=== PATIENT | female | born 1940 | race Caucasian/White ===

== ENCOUNTER 2016-08-27 00:56 | Emergency (ER) | payer OTHER ==
[~2016-08-27] VITALS: Ht 152.4 cm; Wt 43.0 kg
[~2016-08-27 00:56] MED LIST: ACETAMINOPHEN; ATV5 PO; CHOL100010 PO; CLOP1TAB54 PO; HYDR1TAB2 PO; SIMV20TA2 PO
[2016-08-27 01:03] VITALS: TEMP 36.5; Ht 152.4 cm; Wt 43.0 kg
[2016-08-27] MEDS ORDERED: GELATIN SPONGE 12-7MM EXT STA (01:06)
--- NOTE | 2016-08-27 01:47 | EMERGENCY ROOM VISIT NOTE ---
ED Visit Note First contact with patient: 00:59 CHIEF COMPLAINT: Bleeding from right ankle HISTORY OF PRESENT ILLNESS: This 76-year-old female patient presents to the emergency department ambulatory complaining of bleeding to the right ankle. The patient states that she woke up from sleep and struck her right ankle on a coffee table. She states that she cut the ankle over a varicose pain and it was bleeding significantly. The bleeding has stopped after a pressure dressing was applied by EMS. There is no weakness or numbness of the area. Tetanus shot is up-to-date. Full range of motion of the ankle. The patient denies any pain. REVIEW OF SYSTEMS: A 6 system review of systems was completed with positives and pertinent negatives listed in the HPI. ALLERGIES: Atorvastatin, shellfish, simvastatin MEDICATIONS: See med list PMH: No significant past medical history. SOCIAL HISTORY: The patient lives locally by herself. PHYSICAL EXAM: Vital Signs: Reviewed Nurse's notes, vital signs stable. GENERAL : This is a 76-year-old female, in no acute distress, well-developed, well- nourished. SKIN: There is a 2 mm abrasion to the medial right ankle. There is no active bleeding at this time. Extension and flexion of the right ankle is full and strong. Sensation to pain and light touch is intact. EMERGENCY DEPARTMENT COURSE: I examined the patient. Verbal consent was obtained to perform the procedure. The ankle was cleaned with saline and betadine. Gelfoam was applied to the avulsion laceration and the area was dressed with a pressure dressing. The bleeding stopped. The patient tolerated the procedure well. The patient was discharged home in stable condition. The patient was independently evaluated by Dr. Rosas, ED attending physician, who agreed with my assessment and treatment plan. DIAGNOSIS: Right ankle laceration Current/Historical Medications Scheduled Cholecalciferol (Vitamin D), 1,000 INTER.UNIT PO DAILY Clopidogrel Bisulfate (Plavix), 75 MG PO DAILY Hydrocodone/Acetaminophen 5MG/500MG (Lortab 5MG/500MG), 1 TABLET PO BIDM Lorazepam (Ativan *), 1 MG PO BID PRN Simvastatin (Zocor), 20 MG PO QPM [Apap 80MG/0.8ML], PRN Allergies Coded Allergies: Atorvastatin (Verified Allergy, Unknown, ?, 07/21/15) Shellfish (Verified Adverse Reaction, Unknown, 10/22/11) Simvastatin (Verified Adverse Reaction, Unknown, 10/22/11) Vital Signs Date Time Temp Pulse Resp B/P Pulse Ox O2 Delivery O2 Flow Rate FiO2 08/27/16 02:13 86 16 129/79 95 08/27/16 01:03 36.5 80 18 121/69 94 Room Air Departure Information Impression Primary Impression: Laceration of ankle Dispostion Home / Self-Care Condition GOOD Referrals Chad Nick M.D. (PCP) Patient Instructions [facility] Additional Instructions Leave the GELFOAM and dressing in place for the next 48 hours. Keep the dressing clean and dry until time for removal. To remove the GELFOAM dressing, remove the overlying tape and then soak the wound in warm water until the piece of GELFOAM can be easily removed. Proper wound care is essential for adequate wound healing and infection prevention. You can shower and clean the wound with soap and water. Do not scour over the wound, pat dry with a towel. You can use an antibiotic ointment with a dressing/bandage over the wound for the next 3-4 days. After this time you may leave the wound dry and open to the air. Look for signs of infection of the wound including: increased pain, swelling, foul discharge, streaking, or increased temperature. If any of these are noticed you should return to the Emergency Department for further assessment and treatment. As with any laceration you may have received nerve damage to the surrounding tissues. This damage could be permanent. For pain control, you can use the following [id number] medicines (if >12 yo): - Regular strength (325mg/tab) Tylenol (acetaminophen) 2 tabs every 4-6 hours as needed. Do not exceed 12 tablets in a 24 hour period. Avoid taking more than 4 grams (4000 mg) of Tylenol per day. This includes any other sources of acetaminophen you may take on a regular basis. - Regular strength (200 mg/tab) Advil (ibuprofen) 1-2 tabs every 4-6 hours as needed. Do not exceed a dose of 3200 mg per day. Return to the emergency department if your symptoms worsen despite treatment course outlined above. Problem Qualifiers Primary Impression: Laceration of ankle Encounter type: initial encounter Laterality: right Qualified Codes: S91.011A - Laceration without foreign body, right ankle, initial encounter
--- NOTE | 2016-08-27 01:49 | EMERGENCY ROOM VISIT NOTE ---
ED Visit Note First contact with patient: 00:59 I saw this patient in conjunction with Angelina Dumont PA-C. I agree with her decision-making and treatment plan.
[2016-08-27 02:13] VITALS: BP 129/79; PULSE 86; O2SAT 95
== END 2016-08-27 02:14 | disposition home or self-care (01) ==
LOC: EDBD 00:56 → C.EDA 00:57
DX: S91.011A Laceration without foreign body, right ankle, initial encounter (principal); W22.8XXA Striking against or struck by other objects, initial encounter; Y92.019 Unspecified place in single-family (private) house as the place of occurrence of the external cause; Z79.02 Long term (current) use of antithrombotics/antiplatelets; Z79.899 Other long term (current) drug therapy

== ENCOUNTER → 2017-04-14 | Outpatient (CLI) | payer OTHER | END | disposition home or self-care (01) | LOC: C.MAMM 13:21 | PROVIDERS: ATTEND Internal Medicine Geriatric Medicine | DX: M81.0 Age-related osteoporosis without current pathological fracture (principal) ==

== ENCOUNTER → 2017-08-16 | Outpatient (CLI) | payer OTHER ==
[2017-08-16 16:59] LABS: BASO % 0.2 %; BASO ABS # 0.01 K/uL (0-0.2); EOS % 2.9 %; EOS ABS # 0.16 K/uL (0-0.5); HEMATOCRIT 42.2 % (37-47); HEMOGLOBIN 13.9 g/dL (12.0-16.0); IG# 0.01 K/uL (0.00-0.02); LYMPH % 14.8 %; LYMPH ABS # 0.81 K/uL (1.2-3.4); MEAN CELL VOLUME 88.3 fL (80-100); MEAN CORPUSCULAR HEMOGLOBIN 29.1 pg (25-34); MEAN CORPUSCULAR HGB CONC 32.9 g/dl (32-36); MONO % 9.1 %; NEUT % 72.8 %; NEUT ABS # 3.98 K/uL (1.4-6.5); PLATELET COUNT 229 K/uL (130-400); RED CELL DISTRIBUTION WIDTH CV 14.3 % (11.5-14.5); RED CELL DISTRIBUTION WIDTH SD 46.7 fL (36.4-46.3); WHITE BLOOD COUNT 5.47 K/uL (4.8-10.8)
[2017-08-16 17:14] LABS: ALBUMIN 4.2 gm/dl (3.4-5.0); ALT/SGPT 36 U/L (12-78); AST/SGOT 31 U/L (15-37); BLOOD UREA NITROGEN 15 mg/dl (7-18); CARBON DIOXIDE 28 mmol/L (21-32); CHOLESTEROL 204 mg/dl (0-200); CREATININE 0.75 mg/dl (0.60-1.20); GLUCOSE 80 mg/dl (70-99); POTASSIUM 4.4 mmol/L (3.5-5.1); SODIUM 139 mmol/L (136-145)
[2017-08-16 17:24] LABS: ALKALINE PHOSPHATASE 121 U/L (45-117); LDL CHOLESTEROL CALCULATED 105 mg/dl; TOTAL PROTEIN 7.5 gm/dl (6.4-8.2)
== END | disposition home or self-care (01) ==
LOC: C.LABBC 14:37
PROVIDERS: ATTEND Internal Medicine Geriatric Medicine
DX: M81.0 Age-related osteoporosis without current pathological fracture (principal); M19.90 Unspecified osteoarthritis, unspecified site; E04.2 Nontoxic multinodular goiter; D86.9 Sarcoidosis, unspecified; E78.5 Hyperlipidemia, unspecified; E55.9 Vitamin D deficiency, unspecified; G30.9 Alzheimer's disease, unspecified; F41.8 Other specified anxiety disorders

== ENCOUNTER → 2017-09-30 | Outpatient (CLI) | payer OTHER ==
[2017-09-30 17:05] LABS: CALCIUM 9.1 mg/dl (8.5-10.1); POTASSIUM 4.3 mmol/L (3.5-5.1)
--- NOTE | 2017-11-14 06:16 | CODING QUERY NO DIAGNOSIS ---
: 1940 TREATMENT RENDERED WITHOUT A DIAGNOSIS To promote full compliance with coding requirements relating to patient care, physician participation is requested in all cases of medical record coder uncertainty. Please assist us with providing a diagnosis/symptom for the test(s) below: A diagnosis/symptom was not documented on your Order. A valid diagnosis/symptom is required to bill all insurances. Please remember that we are unable to code a diagnosis of rule out, probable, possible, questionable, or suspected. Tests that require a diagnosis: DOS: 09/30/16 POTASSIUM DIAGNOSIS: CALCIUM DIAGNOSIS: MAGNESIUM DIAGNOSIS: Provider Signature: Date: Thank you Teresa Rodriguez [employer] Once completed, please kindly fax back to [phone] For questions please call [phone]
== END | disposition home or self-care (01) ==
LOC: C.LABBC 15:06
PROVIDERS: ATTEND Family Medicine Adult Medicine
DX: R25.2 Cramp and spasm (principal)

== ENCOUNTER 2018-08-15 17:13 | Inpatient (IN) ==
[2018-08-15] MEDS ORDERED: SODIUM CHLORIDE 0.9% 1000ML 1,000 ML IV ONE (18:36)
--- NOTE | 2018-08-15 19:07 | XRay Report ---
XR chest 1V portable CLINICAL HISTORY: Acute change in mental status SARCOIDOSIS COMPARISON STUDY: 05/22/2018 FINDINGS: The cardiac and mediastinal contours remain stable. There is mild hilar fullness. There are diffuse bilateral reticulonodular opacities similar to the preceding study. A trace right pleural ef fusion is suspected. There is no acute parenchymal consolidation[ IMPRESSION: 1. Essentially stable chronic bilateral reticulonodular opacities with associated hilar prominence. T he findings although not specific are consistent with the previously provided clinical history of gil coidosis 2. Small right pleural effusion Electronically signed by: Cr Mccabe M.D. 08/15/2018 7:06 PM
[2018-08-15 19:18] LABS: Basophils # (auto) 0.01 K/uL (0-0.2); Basophils % (auto) 0.1 %; Eosinophils # (auto) 0.07 K/uL (0-0.5); Eosinophils % (auto) 0.8 %; Hematocrit (blood only) 36.2 % (37-47); Hemoglobin 11.9 g/dL (12.0-16.0); Immature Granulocytes # (auto) 0.02 K/uL (0.00-0.02); Immature Granulocytes % (auto) 0.2 %; Lymphocytes # (auto) 0.78 K/uL (1.2-3.4); Lymphocytes % (auto) 9.4 %; Mean Corpuscular Hgb Conc 32.9 g/dL (32-36); Mean Corpuscular Volume 85.2 fL (80-100); Mean Platelet Volume 11.8 fL (7.4-10.4); Monocytes # (auto) 0.88 K/uL (0.11-0.59); Monocytes % (auto) 10.6 %; Neutrophils # (auto) 6.55 K/uL (1.4-6.5); Neutrophils % (auto) 78.9 %; Platelet Count 188 K/uL (130-400); RDW Coefficient of Variation 16.6 % (11.5-14.5); RDW Standard Deviation 51.5 fL (36.4-46.3); Red Blood Count 4.25 M/uL (4.2-5.4); White Blood Count 8.31 K/uL (4.8-10.8)
[2018-08-15 19:31] LABS: INR 1.2 (0.9-1.1); Prothrombin Time 11.9 Seconds (9.0-12.0)
--- NOTE | 2018-08-15 19:40 | CT Scan Report ---
CT head/brain wo con CLINICAL HISTORY: Acute change in mental status COMPARISON STUDY: 10/22/2011 TECHNIQUE: Axial CT of the brain is performed from the vertex to the skull base. IV contrast was not administered for this examination. A dose lowering technique was utilized adhering to the principles of ALARA. CT DOSE: 537.48 mGy.cm FINDINGS: No intra or extra-axial mass lesions are visualized. There is no CT evidence of acute cortical infarc tion. There is no evidence of midline shift. There is no acute hemorrhage. No calvarial fractures ar e visualized. There are extensive white matter hypodensities likely on a small vessel basis. There is no evidence of pathologic ventricular dilatation. There is no evidence of acute sinusitis IMPRESSION: No acute intracranial findings Electronically signed by: Cr Mccabe M.D. 08/15/2018 7:38 PM
[2018-08-15 19:44] LABS: Alanine Aminotransferase 15 U/L (12-78); Albumin Globulin Ratio 1.1 (0.9-2); Albumin Level 3.2 gm/dl (3.4-5.0); Alkaline Phosphatase 79 U/L (45-117); Aspartate Aminotransferase 42 U/L (15-37); BUN Creatinine Ratio 16.1 (10-20); Bilirubin,Total 0.7 mg/dl (0.2-1); Blood Urea Nitrogen 19 mg/dl (7-18); Calcium 13.6 mg/dl (8.5-10.1); Carbon Dioxide 27 mmol/L (21-32); Chloride 107 mmol/L (98-107); Creatine Kinase 87 U/L (26-192); Est GFR (African American) 51.9; Est GFR (Non-African American) 44.7; Globulin 2.9 gm/dl (2.5-4.0); Glucose 70 mg/dl (70-99); Magnesium 1.6 mg/dl (1.8-2.4); Potassium 3.4 mmol/L (3.5-5.1); Sodium 140 mmol/L (136-145); Total Protein 6.1 gm/dl (6.4-8.2)
[2018-08-15 19:49] LABS: Partial Thromboplastin Ratio 1.1; Partial Thromboplastin Time 29.6 Seconds (21.0-31.0)
[2018-08-15 20:04] LABS: Bilirubin Direct 0.2 mg/dl (0-0.2)
--- NOTE | 2018-08-15 21:38 | History & Physical Report ---
Date of Service August 15, 2018 Assessment & Plan (1) Hypercalcemia: 78yoF with hx of sarcoidosis, dementia, HLD, PFO, TIA, multinodular goiter-nontoxic, osteoporosis, Vit D deficiency, muscle cramps at night, gait disturbance and depression/anxiety presented to the ED for concern of hypercal cemia on labs completed today by Dr. Solano. Hypercalcemia likely in the setting of sarcoidosis: concern for increasing confusion -Ca 13.8 corrected (moderate elevation) -CT head no acute abl -Ammonia 22 -PTH ordered to rule out hyperparathyroidism -Received 1L NS bolus in the ED -Started on NS at 200cc/hr -EF 60% -Continue to monitor BMP Hx of Sarcoidosis with concern for infection -Bronchoscopy on 08/02 with one culture positive for enterobacter cloacae -prescribed ciprofloxacin 500mg BID x 14 days - day 1 -Started on Prednisone 10mg daily taper course (4 pills x 2 days then decrease by half a pill every 2 days until finishes course of 36 pills) - day 1 Possible UTI -UA dirty with 1+ LE, 30 WBC, trace blood -UCx pending -Pt denies any symptoms but demented -Pt is on cipro for pulmonary infection which should provide adequate coverage Hypomagnesemia -Mag 1.6 -Mag Sulfate 2g ordered Hypokalemia -K 3.4 -KCL 20meq ordered Dementia -Continue memantine Hx of TIA -Continue clopidogrel Hx of osteoporosis -Continue weekly alendronate Depression/anxiety -Continue escitalopram Code: DNR/DNI DVT prop: Lovenox SQ 30mg Dispo: med/surg telemetry (2) Hypomagnesemia: (3) Sarcoidosis: (4) Dementia: (5) PFO (patent foramen ovale): (6) Depression with anxiety: (7) TIA (transient ischemic attack): (8) HLD (hyperlipidemia): (9) Multinodular goiter (nontoxic): (10) Osteoporosis: (11) Vitamin D deficiency: (12) Hypokalemia: History of Present Illness Chief Complaint: Hypercalcemia Primary Care Provider: Aicha Coppola MD 78yoF with hx of sarcoidosis, dementia, HLD, PFO, TIA, multinodular goiter- nontoxic, osteoporosis, Vit D deficiency, muscle cramps at night, gait disturbance and depression/anxiety presented to the ED for concern of hypercalcemia on labs completed today by Dr. Solano. Per family (neices and son), pt's health has been declining for the past few weeks. She has had trouble walking and is more confused and forgetful. Patient lives in [facility]. Today she had appt with PCP and Dr. Solano who did some labs and started her on abx (cipro) and prednisone for recent bronchoscopy culture on 08/02 being positive. He then called them to go to the ED for concern of hypercalcemia. Pt is demented and not a reliable historian but reports being comfortable and denies any MAGANA/dizziness, fever, cp, sob, abdominal pain, n/v, dysuria. She is n oted to be coughing. PSHx: appendectomy, tonsillectomy and adenoidectomy, and total abdominal hysterectomy Allergies Allergy/AdvReac Type Severity Reaction Status Date / Time atorvastatin Allergy Unknown Unknown Verified 08/15/18 21:07 donepezil [From Aricept] Allergy Unknown Unknown Verified 08/15/18 21:07 naproxen [From Aleve] Allergy Unknown Unknown Verified 08/15/18 21:07 rivastigmine [From Exelon] Allergy Unknown Unknown Verified 08/15/18 21:07 shellfish derived AdvReac Unknown Unknown Verified 08/15/18 21:10 simvastatin AdvReac Unknown Unknown Verified 08/15/18 21:10 Home Medications Home Medications Medication Instructions Recorded Confirmed Type clopidogrel [Plavix] 75 mg PO Q2D 07/27/18 08/15/18 History alendronate 70 mg PO WK 08/15/18 08/15/18 History escitalopram oxalate 10 mg PO DAILY 08/15/18 08/15/18 History memantine 28 mg PO DAILY 08/15/18 08/15/18 History prednisone See Rx Instructions .ROUTE .COMPLEX 08/15/18 08/15/18 History Past Med/Surg History Medical History Anxiety (Acute) High cholesterol (Acute) Pulmonary nodule (Acute) Surgical History History of appendectomy (Acute) History of tonsillectomy and adenoidectomy (Acute) History of total abdominal hysterectomy (Acute) Social History Preferred Language: Danish Communication Ability: Effective State Federal Relations Deputy Director Required: No Beliefs That Will Affect Care: Oriental Orthodox Oriental Orthodox Beliefs: Congregational Current Living Situation: Alone Current Living Situation Comment: at [facility] living apt Feels Safe at Home: Yes and No Is there a partner from a previous relationship who is making you feel unsafe now?: No Any Concerns about Your Family Situation: Yes (family is concerned, pt not taking meds or eating properly) Would You Like to Speak to Someone About Your Situation: Yes (referred to case management) Safety Concerns: Feels Safe At This Time Smoking Status: Never smoker Do You Dip or Chew Tobacco: No Second Hand Exposure: No Hx Alcohol Use: No Hx Substance Use: No Review of Systems Review of Systems: As per HPI Physical Exam Physical Exam: General: In NAD HEENT: palpable nodular goiter, moist mucous membranes Neuro: alert, demented CV: RRR, no m/r/g PULM: Occasional crackles appreciated, equal breath sounds bilaterally ABDOMEN: +BS, non-distended, NTTP in all quadrants LE: no calf TTP, no LE edema Results & Data Vital Signs (Past 12 Hours) Vital Signs Temp Pulse Resp BP Pulse Ox 08/15/18 21:01 52 L 19 146/73 H 95 08/15/18 21:00 52 L 19 95 08/15/18 20:31 55 L 18 146/69 H 93 08/15/18 20:30 52 L 21 93 08/15/18 20:00 54 L 18 140/75 98 08/15/18 19:38 58 L 17 130/79 95 08/15/18 17:21 36.4 C L 58 L 16 121/78 96 Laboratory Results Abnormal lab results 08/15/18 08/15/18 08/15/18 Range/Units 18:56 18:56 18:56 Hgb 11.9 L (12.0-16.0) g/dL Hct 36.2 L (37-47) % RDW Std Deviation 51.5 H (36.4-46.3) fL RDW Coeff of Zainab 16.6 H (11.5-14.5) % MPV 11.8 H (7.4-10.4) fL Neut # (Auto) 6.55 H (1.4-6.5) K/uL Lymph # (Auto) 0.78 L (1.2-3.4) K/uL [place] # (Auto) 0.88 H (0.11-0.59) K/uL INR 1.2 H (0.9-1.1) Potassium 3.4 L (3.5-5.1) mmol/L BUN 19 H (7-18) mg/dl Calcium 13.6 H* (8.5-10.1) mg/dl Magnesium 1.6 L (1.8-2.4) mg/dl AST 42 H (15-37) U/L Total Protein 6.1 L (6.4-8.2) gm/dl Albumin 3.2 L (3.4-5.0) gm/dl Lipase 61 L (73-393) U/L Diagnostic Findings CT head/brain wo con CLINICAL HISTORY: Acute change in mental status COMPARISON STUDY: 10/22/2011 TECHNIQUE: Axial CT of the brain is performed from the vertex to the skull base. IV contrast was not administered for this examination. A dose lowering technique was utilized adhering to the principles of ALARA. CT DOSE: 537.48 mGy.cm FINDINGS: No intra or extra-axial mass lesions are visualized. There is no CT evidence of acute cortical infarction. There is no evidence of midline shift. There is no acute hemorrhage. No calvarial fractures are visualized. There are extensive white matter hypodensities likely on a small vessel basis. There is no evidence of pathologic ventricular dilatation. There is no evidence of acute sinusitis IMPRESSION: No acute intracranial findings XR chest 1V portable CLINICAL HISTORY: Acute change in mental status SARCOIDOSIS COMPARISON STUDY: 05/22/2018 FINDINGS: The cardiac and mediastinal contours remain stable. There is mild hilar fullness. There are diffuse bilateral reticulonodular opacities similar to the preceding study. A trace right pleural effusion is suspected. There is no acute parenchymal consolidation[ IMPRESSION: 1. Essentially stable chronic bilateral reticulonodular opacities with associated hilar prominence. The findings although not specific are consistent with the previously provided clinical history of sarcoidosis 2. Small right pleural effusion Code Status & VTE Plan Code Status DNR/DNI VTE Prophylaxis Plan VTE Prophylaxis will be ordered: Yes Supervising Physician Co-Signing Physician Notes Pt seen/examined in conjunction with resident MD Teresa Hills. Orders and plan of admission formulated with resident. 78 y/o F Hx sarcoidosis, dementia, HLD, TIA, depression/anxiety. The pt was directed to the ER afetr her MD ordered labs and noted that her calcium level was exceedingly high. She had not had specific complaints, however, family had noted some functional decline, increasing confusion and an unsteady gait over the past few weeks. OE AAO x 1 S1,2 R CTAB NT, ND No CCE P: As the pt does not exhibit symptoms consistent with hypercalcemia, we will provide IVF only for the time being. Will consider bisphosphonates if her Ca trends upwards. She is taking prednisone for sarcoid and otherwise does ot have any meds which require DC We will initiate a hypercalcemia w/u. Her sarcoidosis is in the differential. As a separate issue, it is felt that she may not be safe in her current living situation and may require placement prior to DC. Resident Activity Tracking Resident Involvement: Resident Care Provided Care Provided: [facility]
[2018-08-15] MEDS ORDERED: POLYETHYLENE (MIRALAX) 17 GM PACK PO PRN (22:34)
[2018-08-15] MEDS ORDERED: ALUMINUM/MAGNESIUM SUSP 30 ML UDC PO PRN (22:34)
[2018-08-15] MEDS ORDERED: POTASSIUM CHLORIDE 10 MEQ TABCR PO STA (22:34)
--- NOTE | 2018-08-16 00:11 | Emergency Department Note ---
Entered by Beba Reed acting as a scribe for History of Present Illness General Chief complaint: Abnormal Labs/Diagnostic Testing Stated complaint: CRITICAL CALCIUM LEVEL; DOC REFFERED Time Seen by Provider: 08/15/18 18:04 Source: patient History of Present Illness Onset (ago): hour(s) (today) Pain Consistency: + other (episode) Quality: + other (abnormal labs) Associated symptoms: + confusion, + weakness and + other (positive unstable on feet; negative abdominal pain); no chest pain, no fever/chills, no nausea/vomiting and no shortness of breath Treatments prior to arrival: none The patient is a 78 year old female who presents to the Emergency Room with complaints of an episode of abnormal labs today. The patient son states that the patient saw her PCP today and had outpatient labs collected by Dr. Solano's office. Per the patient's son, Dr. Abbott told the patient to come in because of her high calcium levels. Per the patient's son, the patient has been increasingly unstable on her feet, weak, and confused. The patient denies abdominal pain, nausea, vomiting, shortness of breath, and chest pain. The patient's family denies recent fevers or falls. The patient's family denies treatments prior to arrival. History is limited due to patient's underlying Alzheimer's disease. Home Medications Home Medications Medication Instructions Recorded Confirmed Type clopidogrel [Plavix] 75 mg PO Q2D 07/27/18 08/15/18 History alendronate 70 mg PO WK 08/15/18 08/15/18 History escitalopram oxalate 10 mg PO DAILY 08/15/18 08/15/18 History memantine 28 mg PO DAILY 08/15/18 08/15/18 History prednisone See Rx Instructions .ROUTE .COMPLEX 08/15/18 08/15/18 History Allergies Allergy/AdvReac Type Severity Reaction Status Date / Time atorvastatin Allergy Unknown Unknown Verified 08/15/18 21:07 donepezil [From Aricept] Allergy Unknown Unknown Verified 08/15/18 21:07 naproxen [From Aleve] Allergy Unknown Unknown Verified 08/15/18 21:07 rivastigmine [From Exelon] Allergy Unknown Unknown Verified 08/15/18 21:07 shellfish derived AdvReac Unknown Unknown Verified 08/15/18 21:10 simvastatin AdvReac Unknown Unknown Verified 08/15/18 21:10 Past Med/Surg History Medical History Anxiety (Acute) High cholesterol (Acute) Pulmonary nodule (Acute) Surgical History History of appendectomy (Acute) History of tonsillectomy and adenoidectomy (Acute) History of total abdominal hysterectomy (Acute) Social History Preferred Language: Moldovan Communication Ability: Effective Mesh Man Required: No Beliefs That Will Affect Care: Synagogue Synagogue Beliefs: Islam Current Living Situation: Alone Current Living Situation Comment: at [facility] living apt Feels Safe at Home: Yes and No Is there a partner from a previous relationship who is making you feel unsafe now?: No Any Concerns about Your Family Situation: Yes (family is concerned, pt not taking meds or eating properly) Would You Like to Speak to Someone About Your Situation: Yes (referred to case management) Safety Concerns: Feels Safe At This Time Smoking Status: Never smoker Do You Dip or Chew Tobacco: No Second Hand Exposure: No Hx Alcohol Use: No Hx Substance Use: No Review of Systems Unobtainable due to mental health condition Physical Exam Vital Signs Vital Signs - 24 hr 08/15/18 17:21 08/15/18 19:38 08/15/18 20:00 Temperature 36.4 C L Temperature Source Oral Sepsis Recent Fever Within 48 Hours No Sepsis Action Taken by Nursing No Action Required Pulse Rate 58 L 58 L 54 L Pulse Rate from SpO2 Sensor 58 L 53 L Respiratory Rate 16 17 18 Respiratory Effort / Characteristics Non-Labored Spontaneous Respiratory Depth Blood Pressure 121/78 130/79 140/75 Blood Pressure [Left Arm] Blood Pressure Mean 92 96 96 Blood Pressure Mean [Left Arm] Blood Pressure Position Sitting Blood Pressure Position [Left Arm] Pulse Oximetry 96 95 98 Pulse Oximetry [Left Index Finger] Oxygen Delivery Method Room Air Oxygen Delivery Method [Left Index Finger] 08/15/18 20:30 08/15/18 20:31 08/15/18 21:00 Temperature Temperature Source Sepsis Recent Fever Within 48 Hours Sepsis Action Taken by Nursing Pulse Rate 52 L 55 L 52 L Pulse Rate from SpO2 Sensor 53 L 53 L 55 L Respiratory Rate 21 18 19 Respiratory Effort / Characteristics Respiratory Depth Blood Pressure 146/69 H Blood Pressure [Left Arm] Blood Pressure Mean 94 Blood Pressure Mean [Left Arm] Blood Pressure Position Blood Pressure Position [Left Arm] Pulse Oximetry 93 93 95 Pulse Oximetry [Left Index Finger] Oxygen Delivery Method Oxygen Delivery Method [Left Index Finger] 08/15/18 21:01 08/15/18 21:02 08/15/18 21:16 Temperature Temperature Source Sepsis Recent Fever Within 48 Hours Sepsis Action Taken by Nursing Pulse Rate 52 L 53 L Pulse Rate from SpO2 Sensor 50 L 52 L Respiratory Rate 19 19 Respiratory Effort / Characteristics Respiratory Depth Blood Pressure 146/73 H Blood Pressure [Left Arm] Blood Pressure Mean 97 Blood Pressure Mean [Left Arm] Blood Pressure Position Blood Pressure Position [Left Arm] Pulse Oximetry 95 95 Pulse Oximetry [Left Index Finger] Oxygen Delivery Method Room Air Oxygen Delivery Method [Left Index Finger] 08/15/18 21:30 08/15/18 21:31 08/15/18 22:00 Temperature Temperature Source Sepsis Recent Fever Within 48 Hours Sepsis Action Taken by Nursing Pulse Rate 56 L 57 L 56 L Pulse Rate from SpO2 Sensor 54 L 55 L 57 L Respiratory Rate 21 19 18 Respiratory Effort / Characteristics Respiratory Depth Blood Pressure 139/84 Blood Pressure [Left Arm] Blood Pressure Mean 102 Blood Pressure Mean [Left Arm] Blood Pressure Position Blood Pressure Position [Left Arm] Pulse Oximetry 93 93 91 Pulse Oximetry [Left Index Finger] Oxygen Delivery Method Oxygen Delivery Method [Left Index Finger] 08/15/18 22:34 08/15/18 23:34 Temperature 36.9 C 36.9 C Temperature Source Oral Oral Sepsis Recent Fever Within 48 Hours Sepsis Action Taken by Nursing Pulse Rate Pulse Rate from SpO2 Sensor Respiratory Rate 18 18 Respiratory Effort / Characteristics Non-Labored Spontaneous Respiratory Depth Normal Blood Pressure Blood Pressure [Left Arm] 118/68 116/66 Blood Pressure Mean Blood Pressure Mean [Left Arm] 84 82 Blood Pressure Position Blood Pressure Position [Left Arm] Lying Pulse Oximetry 93 91 Pulse Oximetry [Left Index Finger] 93 Oxygen Delivery Method Room Air Room Air Oxygen Delivery Method [Left Index Finger] Room Air HENT: Exam performed. -Head: Normocephalic and atraumatic. -Right Ear: External ear normal. No mastoid tenderness. -Left Ear: External ear normal. No mastoid tenderness. -Mouth/Throat: The oropharynx is clear and moist. No trismus in the jaw. No dental abscesses or uvula swelling. No oropharyngeal exudate or tonsillar abscesses. EYES: Conjunctivae and EOM are normal. Pupils are equal, round, and reactive to light. Right eye exhibits no discharge. Left eye exhibits no discharge. No scleral icterus. NECK: Normal range of motion. Neck supple. No JVD present. No spinous process tenderness present. No carotid bruit present. No rigidity. No tracheal deviation and normal range of motion present. No Brudzinski's sign and no Kernig's sign noted. CV: Normal rate, regular rhythm, normal heart sounds and intact distal pulses. There is no peripheral edema. Palpable radial pulses bue. PULM/CHEST: Effort normal and breath sounds normal. No respiratory distress. No stridor. She has no wheezes. She has no rales. Chest Wall: She exhibits no tenderness. ABD: The abdomen is soft. Bowel sounds are normal. She has no distension. No mass is present. There is no tenderness. There is no rebound, no guarding, no Ya's sign and no tenderness at McBurney's point. Rovsig negative MUSC/SKEL: Normal range of motion. There is no peripheral edema, tenderness or deformity. LYMPH: No cervical adenopathy. NEURO: Motor and sensation grossly intact. SKIN: Skin is warm and dry. She is not diaphoretic. PSYCH: Pleasantly demented. Course 183: The patient was evaluated in room A12A and a complete history and physical examination were performed. The patient's calcium was 14.2 today 08/15/2018. This is up from 11.2 10 days ago. The patient's creatinine was 1.38, and her baseline appears to be 1. The patient's urine today was a contaminated sample. 2003: Vital signs stable. The patient's labs today show a serum calcium of 13.6 and a magnesium of 1.6. The patient will be admitted to Dr. Murray-[facility] Hospitalist service for further evaluation and then placement in a facility. Dr. Murray has been notified. Administered Medications Discontinued Medications Sodium Chloride (Nss 1000ml) 1,000 mls @ 999 mls/hr IV .Q1H1M ONE Stop: 08/15/18 19:36 Last Infusion: 08/15/18 20:49 Dose: 0 mls/hr Documented by: [id number] Admin: 08/15/18 19:45 Dose: 999 mls/hr Documented by: [id number] Medical Decision Making Medical Records Attestation: I reviewed the patient's medical records. Home Medications Current Medication List: was personally reviewed by me Laboratory Data Attestation: I reviewed the patient's lab results. Result diagrams: 08/15/18 18:56 08/15/18 18:56 Lab Results 08/15/18 08/15/18 08/15/18 Range/Units 18:56 18:56 18:56 WBC 8.31 (4.8-10.8) K/uL RBC 4.25 (4.2-5.4) M/uL Hgb 11.9 L (12.0-16.0) g/dL Hct 36.2 L (37-47) % MCV 85.2 (80-100) fL MCH 28.0 (25-34) pg MCHC 32.9 (32-36) g/dL RDW Std Deviation 51.5 H (36.4-46.3) fL RDW Coeff of Zainab 16.6 H (11.5-14.5) % Plt Count 188 (130-400) K/uL MPV 11.8 H (7.4-10.4) fL Immature Gran % (Auto) 0.2 % Neut % (Auto) 78.9 % Lymph % (Auto) 9.4 % Gregg % (Auto) 10.6 % Eos % (Auto) 0.8 % Baso % (Auto) 0.1 % Immature Gran # (Auto) 0.02 (0.00-0.02) K/uL Neut # (Auto) 6.55 H (1.4-6.5) K/uL Lymph # (Auto) 0.78 L (1.2-3.4) K/uL Gregg # (Auto) 0.88 H (0.11-0.59) K/uL Eos # (Auto) 0.07 (0-0.5) K/uL Baso # (Auto) 0.01 (0-0.2) K/uL PT 11.9 (9.0-12.0) Seconds INR 1.2 H (0.9-1.1) APTT 29.6 (21.0-31.0) Seconds PTT Ratio 1.1 Sodium 140 (136-145) mmol/L Potassium 3.4 L (3.5-5.1) mmol/L Chloride 107 (98-107) mmol/L Carbon Dioxide 27 (21-32) mmol/L Anion Gap 6.0 (3-11) BUN 19 H (7-18) mg/dl Creatinine 1.16 (0.6-1.2) mg/dl Est Cr Clr Drug Dosing Not Reportable Est GFR ( Amer) 51.9 Est GFR (Non-Af Amer) 44.7 BUN/Creatinine Ratio 16.1 (10-20) Glucose 70 (70-99) mg/dl Lactate (0.4-2.0) mmol/L Calcium 13.6 H* (8.5-10.1) mg/dl Magnesium 1.6 L (1.8-2.4) mg/dl Total Bilirubin 0.7 (0.2-1) mg/dl Direct Bilirubin 0.2 (0-0.2) mg/dl AST 42 H (15-37) U/L ALT 15 (12-78) U/L Alkaline Phosphatase 79 (45-117) U/L Ammonia (11-32) umol/L Total Creatine Kinase 87 (26-192) U/L Troponin I 0.020 (0-0.045) ng/ml Total Protein 6.1 L (6.4-8.2) gm/dl Albumin 3.2 L (3.4-5.0) gm/dl Globulin 2.9 (2.5-4.0) gm/dl Albumin/Globulin Ratio 1.1 (0.9-2) Lipase 61 L (73-393) U/L PTH Intact (18.4-80.1) pg/ml 08/15/18 08/15/18 08/15/18 Range/Units 19:24 19:24 23:03 WBC (4.8-10.8) K/uL RBC (4.2-5.4) M/uL Hgb (12.0-16.0) g/dL Hct (37-47) % MCV (80-100) fL MCH (25-34) pg MCHC (32-36) g/dL RDW Std Deviation (36.4-46.3) fL RDW Coeff of Zainab (11.5-14.5) % Plt Count (130-400) K/uL MPV (7.4-10.4) fL Immature Gran % (Auto) % Neut % (Auto) % Lymph % (Auto) % Gregg % (Auto) % Eos % (Auto) % Baso % (Auto) % Immature Gran # (Auto) (0.00-0.02) K/uL Neut # (Auto) (1.4-6.5) K/uL Lymph # (Auto) (1.2-3.4) K/uL Gregg # (Auto) (0.11-0.59) K/uL Eos # (Auto) (0-0.5) K/uL Baso # (Auto) (0-0.2) K/uL PT (9.0-12.0) Seconds INR (0.9-1.1) APTT (21.0-31.0) Seconds PTT Ratio Sodium (136-145) mmol/L Potassium (3.5-5.1) mmol/L Chloride (98-107) mmol/L Carbon Dioxide (21-32) mmol/L Anion Gap (3-11) BUN (7-18) mg/dl Creatinine (0.6-1.2) mg/dl Est Cr Clr Drug Dosing Est GFR ( Amer) Est GFR (Non-Af Amer) BUN/Creatinine Ratio (10-20) Glucose (70-99) mg/dl Lactate 1.8 (0.4-2.0) mmol/L Calcium (8.5-10.1) mg/dl Magnesium (1.8-2.4) mg/dl Total Bilirubin (0.2-1) mg/dl Direct Bilirubin (0-0.2) mg/dl AST (15-37) U/L ALT (12-78) U/L Alkaline Phosphatase (45-117) U/L Ammonia 22.0 (11-32) umol/L Total Creatine Kinase (26-192) U/L Troponin I (0-0.045) ng/ml Total Protein (6.4-8.2) gm/dl Albumin (3.4-5.0) gm/dl Globulin (2.5-4.0) gm/dl Albumin/Globulin Ratio (0.9-2) Lipase (73-393) U/L PTH Intact < 6.3 L (18.4-80.1) pg/ml Imaging Data Radiologist's Impression: Radiology results as stated below per my review and the radiologist's interpretation: XR chest 1V portable CLINICAL HISTORY: Acute change in mental status SARCOIDOSIS COMPARISON STUDY: 05/22/2018 FINDINGS: The cardiac and mediastinal contours remain stable. There is mild hilar fullness. There are diffuse bilateral reticulonodular opacities similar to the preceding study. A trace right pleural effusion is suspected. There is no acute parenchymal consolidation[ IMPRESSION: 1. Essentially stable chronic bilateral reticulonodular opacities with ass ociated hilar prominence. The findings although not specific are consistent with the previously provided clinical history of sarcoidosis 2. Small right pleural effusion Electronically signed by: Cr Mccabe M.D. 08/15/2018 7:[address] head/brain wo con CLINICAL HISTORY: Acute change in mental status COMPARISON STUDY: 10/22/2011 TECHNIQUE: Axial CT of the brain is performed from the vertex to the skull base. IV contrast was not administered for this examination. A dose lowering technique was utilized adhering to the principles of ALARA. CT DOSE: 537.48 mGy.cm FINDINGS: No intra or extra-axial mass lesions are visualized. There is no CT evidence of acute cortical infarction. There is no evidence of midline shift. There is no acute hemorrhage. No calvarial fractures are visualized. There are extensive white matter hypodensities likely on a small vessel basis. There is no evidence of pathologic ventricular dilatation. There is no evidence of acute sinusitis IMPRESSION: No acute intracranial findings Electronically signed by: Cr Mccabe M.D. 08/15/2018 7:38 PM ECG Data Attestation: I personally reviewed and interpreted this ECG as follows: Indication: weakness Rate (beats per minute): 59 Rhythm: sinus rhythm Findings: + other (UT, QRS, and QTC intervals within normal limits) and + T-wave inversion (lead II, III, aVF, V3, V4) Blood Pressure Blood Pressure Findings: Elevated blood pressure Blood Pressure Disposition: further management by hospitalist [facility] Narrative Vital signs stable. The patient's labs today show a serum calcium of 13.6 and a magnesium of 1.6. The patient will be admitted to Dr. Murray-[facility] Hospitalist service for further evaluation and then placement in a facility. Dr. Murray has been notified. Impression & Plan Hypercalcemia, Hypomagnesemia Discharge Plan Visit Data *Final* Discharge Date/Time: 08/15/18 22:04 Chief Complaint: Abnormal Labs/Diagnostic Testing Stated Complaint: CRITICAL CALCIUM LEVEL; DOC REFFERED ED Provider: Juan Marr Discharge Problem: Hypercalcemia, Hypomagnesemia Patient Disposition: Admitted As Inpatient Discharge Instructions Interventions: ED Discharge Assessment Last Done: 08/15/18 22:04 The scribe's documentation has been prepared under my direction and personally reviewed by me in its entirety. I confirm that the note above accurately reflects all work, treatment, procedures, and medical decision making performed by me.
[2018-08-16] MEDS: SODIUM CHLORIDE 0.9% 1000ML 1,000 ML IV SCH ×5 (00:23→20:26)
[2018-08-16] MEDS: MAGNESIUM SULFATE / D5W 1 GM/100 ML BAG IV SCH ×2 (00:24→02:21)
[2018-08-16] MEDS: CIPROFLOXACIN 500 MG TAB PO SCH ×2 (00:36→09:21)
[2018-08-16] MEDS: ENOXAPARIN INJ 30 MG/0.3 ML SYR SQ SCH ×2 (00:37→20:26)
[2018-08-16] MEDS ORDERED: Nursing to Pharmacy Communication ONE (01:09)
[2018-08-16 06:35] LABS: Appearance Urine Cloudy (Clear); Bacteria Urine Automated Negative (Negative); Bilirubin Urine Negative (Negative); Blood Urine Negative (Negative); Color Urine Yellow; Epithelial Cell Urine Auto 20-30 /lpf (0-5); Glucose Urine UA Negative (Negative); Ketones Urine Trace (Negative); Leukocyte Esterase Urine Negative (Negative); Nitrite Urine Negative (Negative); Protein Urine Negative (Negative); Specific Gravity Urine 1.018 (1.000-1.030); Urobilinogen Urine Negative (Negative)
[2018-08-16 07:16] LABS: Basophils # (auto) 0.01 K/uL (0-0.2); Basophils % (auto) 0.1 %; Eosinophils # (auto) 0.09 K/uL (0-0.5); Eosinophils % (auto) 1.2 %; Hematocrit (blood only) 33.2 % (37-47); Immature Granulocytes # (auto) 0.02 K/uL (0.00-0.02); Immature Granulocytes % (auto) 0.3 %; Lymphocytes # (auto) 0.72 K/uL (1.2-3.4); Lymphocytes % (auto) 9.6 %; Mean Corpuscular Hgb Conc 33.1 g/dL (32-36); Mean Corpuscular Volume 87.6 fL (80-100); Mean Platelet Volume 11.5 fL (7.4-10.4); Monocytes # (auto) 0.67 K/uL (0.11-0.59); Monocytes % (auto) 8.9 %; Neutrophils # (auto) 5.98 K/uL (1.4-6.5); Neutrophils % (auto) 79.9 %; Platelet Count 159 K/uL (130-400); RDW Coefficient of Variation 16.7 % (11.5-14.5); RDW Standard Deviation 52.9 fL (36.4-46.3); Red Blood Count 3.79 M/uL (4.2-5.4); White Blood Count 7.49 K/uL (4.8-10.8)
[2018-08-16 07:55] LABS: Albumin Globulin Ratio 1.2 (0.9-2); Albumin Level 2.8 gm/dl (3.4-5.0); BUN Creatinine Ratio 15.4 (10-20); Bilirubin,Total 0.6 mg/dl (0.2-1); Calcium 12.7 mg/dl (8.5-10.1); Creatinine Clr Calc Pharmacy 24.9 ml/min; Est GFR (African American) 53.5; Est GFR (Non-African American) 46.2; Globulin 2.3 gm/dl (2.5-4.0); Potassium 3.1 mmol/L (3.5-5.1); Total Protein 5.1 gm/dl (6.4-8.2)
[2018-08-16] MEDS ORDERED: GLUCOSE 10 TABS/TUBE PO PRN (08:35)
[2018-08-16] MEDS ORDERED: GLUCOSE 40% GEL 15 GM TUBE PO PRN (08:35)
[2018-08-16] MEDS ORDERED: CARBOHYDRATES FOR HYPOGLYCEMIA PO PRN (08:35)
[2018-08-16] MEDS ORDERED: DEXTROSE 50% 50 ML SYRINGE IV PRN (08:35)
[2018-08-16] MEDS ORDERED: GLUCAGON FOR INJ 1 MG VIAL SQ PRN (08:35)
[2018-08-16] MEDS ORDERED: POTASSIUM CHLORIDE 20 MEQ TABCR PO ONE (08:45)
[2018-08-16] MEDS ORDERED: predniSONE 20 MG TAB PO SCH (09:00)
[2018-08-16] MEDS: CLOPIDOGREL BISULFATE 75 MG TAB PO SCH (09:20)
[2018-08-16] MEDS: predniSONE 10 MG TABLET PO SCH (09:20)
[2018-08-16] MEDS: ESCITALOPRAM OXALATE 10 MG TAB PO SCH (09:21)
[2018-08-16] MEDS: DONEPEZIL HCL 5 MG TAB PO SCH (17:16)
--- NOTE | 2018-08-16 18:49 | Family Medicine Progress Note ---
Date of Service August 16, 2018 Assessment & Plan (1) Hypercalcemia: 78yoF with hx of sarcoidosis, dementia, HLD, PFO, TIA, multinodular goiter-nontoxic, osteoporosis, Vit D deficiency, muscle cramps at night, gait disturbance and depression/anxiety presented to the ED for concern of hypercal cemia on labs completed today by Dr. Solano. Hypercalcemia likely in the setting of sarcoidosis: concern for increasing confusion -Ca level trending, Ionized ca of 1.74 -CT head no acute abl -Ammonia 22 day of arrival , recheck tomorrow -PTH , PTHrp VIT D levels pending -Received 1L NS bolus in the ED -Continue NS at 200cc/hr -EF 60% -Continue to monitor BMP Hx of Sarcoidosis with concern for infection -Bronchoscopy on 08/02 with one culture positive for enterobacter cloacae -Continue ciprofloxacin 500mg BID x 14 days - day 1 -Continue Prednisone 10mg daily taper course (4 pills x 2 days then decrease by half a pill every 2 days until finishes course of 36 pills) - day 1 Possible UTI -UA dirty with 1+ LE, 30 WBC, trace blood -F/u urine cx -already on cipro which would provide coverage Hypomagnesemia -supplement as needed Hypokalemia -supplement as needed Dementia -Continue memantine Hx of TIA -Continue clopidogrel Hx of osteoporosis -Continue weekly alendronate Depression/anxiety -Continue escitalopram Code: DNR/DNI DVT prop: Lovenox SQ 30mg Dispo: med/surg telemetry PT/OT (2) Hypomagnesemia: (3) Sarcoidosis: (4) Dementia: (5) PFO (patent foramen ovale): (6) Depression with anxiety: (7) TIA (transient ischemic attack): (8) HLD (hyperlipidemia): (9) Multinodular goiter (nontoxic): (10) Osteoporosis: (11) Vitamin D deficiency: (12) Hypokalemia: Supervising Physician Co-Signing Physician Notes 78 year old female with hx of sarcoidosis, dementia, HLD, PFO, TIA, multinodular nontoxic goiter, osteoporosis, depression/anxiety admitted with hypercalcemia. Family mentioned that her right eyelid seems to get intermittently droopy. Patient reports some generalized muscle fatigue as well. 1.hypercalcemia. Ca trending down. Will follow ionized calciums. PTH low. PTHrp pending. TSH pending for tomorrow AM. Continue with IVFs. Restart her oral alendronate (she has missed several weeks of this recently). Not on any medications that would predispose her to hypercalcemia. 2. hx of sacroid. Has recent bronch washing growing enterobacter cloacae. 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 Stated here. Monitor for improving cough. 3. dirty UA. Culture showing E.Coli. Already on Cipro. 5. intermittent muscle fatiguing. ?due to calcium level. Monitor eyelid. Dispo: pending clinical improvement. PT/OT consults. May require SNF at discharge. Subjective No acute events over night. Patient reports she has generalized weakness but is otherwise asymptomatic. She denies palpitation, nausea/vomiting, constipation, pain. Review of Systems Constitutional: + fatigue and + weakness; no fever and no chills Respiratory: + cough; no dyspnea Cardiovascular: no chest pain, no palpitations and no edema Gastrointestinal: no abdominal pain, no nausea, no vomiting and no change in stools Genitourinary: + urinary frequency; no dysuria and no urinary urgency Neurologic: + confusion (improved); no localized weakness, no tingling and no numbness Physical Exam Physical Exam: GENERAL APPEARANCE: alert and cooperative, and appears to be in no acute distress. HEAD: normocephalic. EYES: PERRL, EOMI, vision is grossly intact. EARS: hearing grossly intact. CARDIAC: Normal S1 and S2. No S3, S4 or murmurs. Rhythm is regular LUNGS: Clear to auscultation and percussion without rales, rhonchi, wheezing or diminished breath sounds. ABDOMEN: Positive bowel sounds. Soft, nondistended, nontender. No guarding or rebound. No masses. LOWER EXTREMITY: no edema NEUROLOGICAL: CN II-XII grossly intact. moves extremities Results & Data Vital Signs (Past 12 Hours) Vital Signs Temp Pulse Pulse Resp BP Pulse Ox 08/16/18 15:48 36.5 C 73 20 126/73 93 08/16/18 12:31 36.6 C 60 18 119/78 90 08/16/18 07:35 36.7 C 61 20 119/63 91 08/16/18 07:00 62 Resident Activity Tracking Resident Involvement: Resident Care Provided Care Provided: Adult [facility] Medicine
[2018-08-17] MEDS: CIPROFLOXACIN 500 MG TAB PO SCH ×2 (00:28→18:13)
[2018-08-17] MEDS: SODIUM CHLORIDE 0.9% 1000ML 1,000 ML IV SCH ×2 (03:19→08:34)
[2018-08-17] MEDS ORDERED: ALENDRONATE SODIUM 70 MG TAB PO SCH (06:00)
[2018-08-17] MEDS ORDERED: ALBUT/IPRATROP 3MG/0.5MG NEB 3 ML VIAL NEB STA (08:07)
[2018-08-17] MEDS: ESCITALOPRAM OXALATE 10 MG TAB PO SCH (08:38)
[2018-08-17] MEDS: predniSONE 10 MG TABLET PO SCH (08:38)
[2018-08-17] MEDS: DONEPEZIL HCL 5 MG TAB PO SCH (08:38)
[2018-08-17 08:39] LABS: Basophils # (auto) 0.01 K/uL (0-0.2); Basophils % (auto) 0.1 %; Eosinophils # (auto) 0.09 K/uL (0-0.5); Eosinophils % (auto) 0.6 %; Hematocrit (blood only) 34.2 % (37-47); Hemoglobin 11.2 g/dL (12.0-16.0); Immature Granulocytes # (auto) 0.06 K/uL (0.00-0.02); Immature Granulocytes % (auto) 0.4 %; Lymphocytes # (auto) 0.96 K/uL (1.2-3.4); Lymphocytes % (auto) 6.3 %; Mean Corpuscular Volume 86.4 fL (80-100); Mean Platelet Volume 10.8 fL (7.4-10.4); Monocytes # (auto) 1.48 K/uL (0.11-0.59); Monocytes % (auto) 9.7 %; Neutrophils # (auto) 12.72 K/uL (1.4-6.5); Neutrophils % (auto) 82.9 %; Platelet Count 205 K/uL (130-400); Red Blood Count 3.96 M/uL (4.2-5.4); White Blood Count 15.32 K/uL (4.8-10.8)
--- NOTE | 2018-08-17 08:48 | XRay Report ---
XR chest 1V portable HISTORY: 78 years-old Female sob acute shortness of breath COMPARISON: Chest radiograph 08/15/2018, chest CT 05/25/2017 TECHNIQUE: Portable AP view of the chest FINDINGS: Cardiac silhouette is upper limits of normal in size and is unchanged. Small bilateral pleural effusi ons. No pneumothorax. There are bilateral reticular nodular opacities with associated patchy multifoc al consolidation. Opacities of the lung bases may have slightly progressed. Prominence of the pulmona ry arterial tree may reflect pulmonary arterial hypertension. Calcification of the thoracic aortic ar ch. Degenerative changes of the shoulders and spine. IMPRESSION: 1. Bilateral reticular nodular opacities redemonstrated. Findings likely correlate with patient's rep orted clinical history of sarcoidosis. 2. Stable to slightly progressed bibasilar alveolar opacities with trace pleural effusions. The above report was generated using voice recognition software. It may contain grammatical, syntax o r spelling errors. Electronically signed by: Thien Landon M.D. 08/17/2018 8:47 AM
[2018-08-17 08:49] LABS: Mean Corpuscular Hgb Conc 32.7 g/dL (32-36)
[2018-08-17 08:51] LABS: T4 Free Thyroxine 1.41 ng/dl (0.8-1.6)
[2018-08-17 08:56] LABS: BUN Creatinine Ratio 13.1 (10-20); Calcium 11.8 mg/dl (8.5-10.1); Creatinine Clr Calc Pharmacy 23.6 ml/min; Est GFR (African American) 48.8; Est GFR (Non-African American) 42.1; Potassium 3.5 mmol/L (3.5-5.1)
[2018-08-17] MEDS ORDERED: FUROSEMIDE 10 MG in SYRINGE 0 ML IV SCH (09:15)
[2018-08-17] MEDS: ALBUT/IPRATROP 3MG/0.5MG NEB 3 ML VIAL NEB SCH ×4 (11:51→23:03)
--- NOTE | 2018-08-17 15:22 | Pulmonary Consultation ---
Date of Consultation August 17, 2018 Assessment & Plan (1) Sarcoidosis: Impression: 1. Sarcoidosis, currently stable. 2. Kyphoscoliosis, with restrictive pattern. 3. Pulmonary hypertension with PA pressure in the range of 40. 4. Dementia and clinical declination. 5. Hypercalcemia, etiology is likely related to sarcoidosis versus hypothyroidism. 6. Hypothyroidism. Plan: 1. Continue prednisone 40 mg p.o. daily for a week then taper by 10 mg every other day. 2. Titrate FiO2 to keep O2 sat above the 90% only. 3. Gentle diuresis. 4. I am not sure if the patient was tolerated IV fluids for the management of hypercalcemia given her pulmonary hypertension. 5. No specific treatment for kyphoscoliosis, it will affect her lung with CO2 retention. Thank you. History of Present Illness Reason for Consultation: Sarcoidosis Requesting Physician: DR. Palacios. Attending Physician: Baljit Palacios, History of Present Illness Dear Dr. Palacios: Thank you for your kind referral Mrs. Garcia to pulmonary service. This is 78-year-old female with history of sarcoidosis diagnosed over 17 years ago, has been followed by Dr. Solano, the patient recently underwent a bronchoscopy which showed Enterobacter in the specimen, she was started empirically on Cipro. The patient is assisted living resident, and was sent to the ER for further evaluation and treatment due to her clinical decline and forgetfulness. When I interviewed the patient, she denies any increased shortness of breath or cough, she does not use oxygen at home but she has been in the hospital using it. She denies any sputum production. Denies any rash no increased swelling in her joints she does not have any pain with ambulation. She has pain mainly in her small digits and metatarsal metacarpal joints only. She has no visual disturbances. No oral mucosal lesion. Denies any hemoptysis, no change in bowel movements or urinary habits. Although the patient appears to be somewhat confused but she was able to give me review of system adequately. The patient was diagnosed with bronchoscopy in the past and she did have a lung biopsy according to her. I do not have the results of it. The patient has been followed by Dr. Solano as an outpatient. Allergies Allergy/AdvReac Type Severity Reaction Status Date / Time atorvastatin Allergy Unknown Unknown Verified 08/15/18 21:07 donepezil [From Aricept] Allergy Unknown Unknown Verified 08/15/18 21:07 naproxen [From Aleve] Allergy Unknown Unknown Verified 08/15/18 21:07 rivastigmine [From Exelon] Allergy Unknown Unknown Verified 08/15/18 21:07 shellfish derived AdvReac Unknown Unknown Verified 08/15/18 21:10 simvastatin AdvReac Unknown Unknown Verified 08/15/18 21:10 Home Medications Home Medications Medication Instructions Recorded Confirmed Type clopidogrel [Plavix] 75 mg PO Q2D 07/27/18 08/15/18 History alendronate 70 mg PO WK 08/15/18 08/15/18 History escitalopram oxalate 10 mg PO DAILY 08/15/18 08/15/18 History memantine 28 mg PO DAILY 08/15/18 08/15/18 History prednisone See Rx Instructions .ROUTE .COMPLEX 08/15/18 08/15/18 History Patient History Medical History Anxiety (Acute) High cholesterol (Acute) Pulmonary nodule (Acute) Surgical History History of appendectomy (Acute) History of tonsillectomy and adenoidectomy (Acute) History of total abdominal hysterectomy (Acute) Social History Preferred Language: [place] Communication Ability: Impaired Bonsai Tender Required: No Beliefs That Will Affect Care: Scientologist Scientologist Beliefs: Mandaeism marital status: / Current Living Situation: Alone Current Living Situation Comment: at [facility] living apt Feels Safe at Home: Yes and No Is there a partner from a previous relationship who is making you feel unsafe now?: No Any Concerns about Your Family Situation: Yes (family is concerned, pt not taking meds or eating properly) Would You Like to Speak to Someone About Your Situation: Yes (referred to case management) Safety Concerns: Feels Safe At This Time Smoking Status: Never smoker Do You Dip or Chew Tobacco: No Second Hand Exposure: No Hx Alcohol Use: No Hx Substance Use: No Review of Systems Review of Systems: Review of system as mentioned above in the first section, no new symptoms. 14 systems has been evaluated. Otherwise were unremarkable. Physical Exam Physical Exam: Vital signs are stable, the patient is 96% on 4 L of oxygen via oxygen mask, she could come off the oxygen as well. No JVD, cachectic, S1-S2 regular rate and rhythm, distant breath sounds bilaterally, kyphoscoliosis noted, abdomen is benign, digit deformity secondary to osteoarthritis, no edema in the periphery, no rash noted in the lower extremities. Neurologically apart from confusion she appears nonfocal. Results & Data Vital Signs (Past 12 Hours) Vital Signs Temp Pulse Pulse Resp BP BP Pulse Ox 08/17/18 11:53 69 18 97 08/17/18 11:51 36.5 C 80 20 128/72 97 08/17/18 10:07 79 120/68 96 08/17/18 09:30 08/17/18 08:22 66 20 95 08/17/18 07:00 36.5 C 87 16 131/79 96 Pulse Ox Pulse Ox Pulse Ox 08/17/18 11:53 08/17/18 11:51 08/17/18 10:07 08/17/18 09:30 90 94 83 L 08/17/18 08:22 08/17/18 07:00 Laboratory Results Labs showed leukocytosis likely related to steroids, she does have free water deficit with hypernatremia, BUN and creatinine slightly elevated, and her calcium slightly elevated as well. Diagnostic Findings Chest x-ray which I reviewed personally showed multiple pulmonary nodules, compatible with the previous CAT scan that she has which showed also bilateral multiple pulmonary nodules. The patient is developing bilateral small pleural effusion. Echocardiogram revealed pulmonary hypertension compatible with her lung involvement of sarcoidosis. And her ejection fraction has been preserved.
--- NOTE | 2018-08-17 18:53 | Family Medicine Progress Note ---
Date of Service August 17, 2018 Assessment & Plan (1) Hypercalcemia: 78yoF with hx of sarcoidosis, dementia, HLD, PFO, TIA, multinodular goiter-nontoxic, osteoporosis, Vit D deficiency, muscle cramps at night, gait disturbance and depression/anxiety presented to the ED for concern of hypercal cemia on labs completed today by Dr. Solano. Acute Respiratory Failure - possibly secondary to fluid overload vs exacerbation sarcoid symptoms - given 10 mg IV Lasix, - CXR showed evidence consistent with sarcoidosis in addition to mild pleural effusions and bibasilar alveolar opacities - Pulmonology consulted , agrees with prednisone 40 mg daily x 1 week with taper by 10 mg every other day - Continue diuresis Hypercalcemia likely in the setting of sarcoidosis: concern for increasing confusion -Ca level trending, Ionized ca of 1.74 -CT head no acute abl -PTH , PTHrp VIT D levels pending -Received 1L NS bolus in the ED -Stopped NS given worsening respiratory status -EF 60% -Continue to monitor BMP Hx of Sarcoidosis with concern for infection -Bronchoscopy on 08/02 with one culture positive for enterobacter cloacae -Continue ciprofloxacin 500mg BID x 14 days -Continue Prednisone taper as above Possible UTI -UA dirty with 1+ LE, 30 WBC, trace blood -F/u urine cx -already on cipro which would provide coverage Hypomagnesemia -supplement as needed Hypokalemia -supplement as needed Dementia -Continue memantine Hx of TIA -Continue clopidogrel Hx of osteoporosis -Continue weekly alendronate Depression/anxiety -Continue escitalopram Code: DNR/DNI DVT prop: Lovenox SQ 30mg Dispo: med/surg telemetry PT/OT (2) Hypomagnesemia: (3) Sarcoidosis: (4) Dementia: (5) PFO (patent foramen ovale): (6) Depression with anxiety: (7) TIA (transient ischemic attack): (8) HLD (hyperlipidemia): (9) Multinodular goiter (nontoxic): (10) Osteoporosis: (11) Vitamin D deficiency: (12) Hypokalemia: Supervising Physician Co-Signing Physician Notes Patient seen and examined with Dr. Luna. Agree with assessment and plan of care as documented. 78 year old female with hx of sarcoidosis, dementia, HLD, PFO, TIA, multinodular nontoxic goiter, osteoporosis, depression/anxiety admitted with hypercalcemia. Family mentioned that her right eyelid seems to get intermittently droopy. Patient reports some generalized muscle fatigue as well. 1.hypercalcemia. Ca trending down. Will follow ionized calciums. PTH low. PTHrp pending. Stop IVFs. IV Lasix. Restart her oral alendronate (she has missed several weeks of this recently). Not on any medications that would predispose her to hypercalcemia. 2. hx of sacroid. Has recent bronch washing growing enterobacter cloacae. 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 Stated here. Monitor for improving cough. Appreciate pulm recommendations. 4. New O2 requirement. Wean O2. New CXR without new infiltrate and new leukocytosis. On Cipro, but consider respiratory FQ if not improving. 5. dirty UA. Culture showing E.Coli. Already on Cipro. 6. intermittent muscle fatiguing. ?due to calcium level. Monitor eyelid. Dispo: pending clinical improvement. PT/OT consults. May require SNF at discharge. Son is from [place] near [place] and would prefer SNF near him. Subjective Received report from nurse around 8 am that patient was displaying increased working of breathing, desaturation, requiring 6L NC initially to maintain saturation. On evaluation of patient, she did have wheezing on exam. CXR was ordered and patient was given 10 mg Lasix and Duoneb treatment. Symptoms improved subsequent to the intervention. Review of Systems Constitutional: + fatigue and + weakness; no fever and no chills Respiratory: + cough, + dyspnea and + wheezing Cardiovascular: no chest pain, no palpitations, no edema and no calf pain Gastrointestinal: no abdominal pain, no nausea, no vomiting and no change in stools Physical Exam Physical Exam: GENERAL APPEARANCE: alert and cooperative, moderate repsiratory distess HEAD: normocephalic. EYES: PERRL, EOMI, vision is grossly intact. EARS: hearing grossly intact. CARDIAC: Normal S1 and S2. No S3, S4 or murmurs. Rhythm is regular LUNGS: Clear to auscultation and percussion without rales, rhonchi, + wheezing, diminished breath sounds. LOWER EXTREMITY: no edema NEUROLOGICAL: CN II-XII grossly intact. moves extremities Results & Data Vital Signs (Past 12 Hours) Vital Signs Temp Pulse Pulse Resp BP BP Pulse Ox 08/17/18 16:26 36.5 C 107 H 22 118/69 90 08/17/18 15:28 71 18 93 08/17/18 15:02 88 L 08/17/18 11:53 69 18 97 08/17/18 11:51 36.5 C 80 20 128/72 97 08/17/18 10:07 79 120/68 96 08/17/18 09:30 08/17/18 08:22 66 20 95 08/17/18 07:00 36.5 C 87 16 131/79 96 Pulse Ox Pulse Ox Pulse Ox 08/17/18 16:26 08/17/18 15:28 08/17/18 15:02 08/17/18 11:53 08/17/18 11:51 08/17/18 10:07 08/17/18 09:30 90 94 83 L 08/17/18 08:22 08/17/18 07:00
[2018-08-17] MEDS: GUAIFENESIN/DEXTROM SYRUP 100MG/10MG 5ML UDC PO PRN (19:47)
[2018-08-17] MEDS: DICLOFENAC SOD 1% GEL 100 GM TUBE EXT SCH (20:43)
[2018-08-17] MEDS: ENOXAPARIN INJ 30 MG/0.3 ML SYR SQ SCH (23:07)
[2018-08-18] MEDS: ALBUT/IPRATROP 3MG/0.5MG NEB 3 ML VIAL NEB SCH ×6 (03:25→22:58)
[2018-08-18] MEDS: GUAIFENESIN/DEXTROM SYRUP 100MG/10MG 5ML UDC PO PRN (07:26)
[2018-08-18] MEDS ORDERED: FUROSEMIDE 10 MG in SYRINGE 0 ML IV STA (07:40)
[2018-08-18] MEDS ORDERED: FUROSEMIDE 40 MG/4 ML VIAL IV ONE (07:41)
--- NOTE | 2018-08-18 08:34 | XRay Report ---
XR chest 1V portable HISTORY: Shortness of breath. COMPARISON: Chest 08/17/2018. FINDINGS: No pneumothorax. The heart is stable in size. Bilateral coarse interstitial thickening and bilateral mid to lower lung zone airspace opacities persist. There may be trace bilateral pleural eff usions. IMPRESSION: No change in the bilateral interstitial and alveolar airspace opacities. Electronically signed by: Nura Zendejas M.D. 08/18/2018 8:33 AM
[2018-08-18 08:50] LABS: Basophils # (auto) 0.01 K/uL (0-0.2); Basophils % (auto) 0.1 %; Eosinophils # (auto) 0.05 K/uL (0-0.5); Eosinophils % (auto) 0.4 %; Hematocrit (blood only) 30.8 % (37-47); Hemoglobin 10.4 g/dL (12.0-16.0); Immature Granulocytes # (auto) 0.05 K/uL (0.00-0.02); Immature Granulocytes % (auto) 0.4 %; Lymphocytes # (auto) 0.57 K/uL (1.2-3.4); Lymphocytes % (auto) 4.9 %; Mean Corpuscular Hgb Conc 33.8 g/dL (32-36); Mean Corpuscular Volume 86.5 fL (80-100); Mean Platelet Volume 10.6 fL (7.4-10.4); Monocytes % (auto) 11.2 %; Neutrophils # (auto) 9.66 K/uL (1.4-6.5); Platelet Count 186 K/uL (130-400); RDW Standard Deviation 53.1 fL (36.4-46.3); Red Blood Count 3.56 M/uL (4.2-5.4); White Blood Count 11.64 K/uL (4.8-10.8)
[2018-08-18 09:10] LABS: BUN Creatinine Ratio 13.2 (10-20); Calcium 11.9 mg/dl (8.5-10.1); Creatinine Clr Calc Pharmacy 23.9 ml/min; Est GFR (African American) 48.3; Est GFR (Non-African American) 41.7; Potassium 2.9 mmol/L (3.5-5.1)
[2018-08-18] MEDS ORDERED: POTASSIUM CHLORIDE 20 MEQ TABCR PO ONE (10:15)
[2018-08-18] MEDS: predniSONE 10 MG TABLET PO SCH (10:24)
[2018-08-18] MEDS: CLOPIDOGREL BISULFATE 75 MG TAB PO SCH (10:26)
[2018-08-18] MEDS: ESCITALOPRAM OXALATE 10 MG TAB PO SCH (10:27)
[2018-08-18] MEDS: DONEPEZIL HCL 5 MG TAB PO SCH (10:27)
[2018-08-18] MEDS: DICLOFENAC SOD 1% GEL 100 GM TUBE EXT SCH ×3 (10:28→20:21)
[2018-08-18] MEDS: MEMANTINE PO SCH (10:29)
[2018-08-18] MEDS: CIPROFLOXACIN 500 MG TAB PO SCH (12:20)
--- NOTE | 2018-08-18 13:55 | Pulmonology Progress Note ---
Date of Service August 18, 2018 Assessment & Plan (1) Sarcoidosis: Impression: 1. Sarcoidosis, currently stable. 2. Kyphoscoliosis, with restrictive pattern. 3. Pulmonary hypertension with PA pressure in the range of 40. 4. Dementia and clinical declination. 5. Hypercalcemia, etiology is likely related to sarcoidosis versus hypothyroidism. 6. Hypothyroidism. Plan: 1. Continue prednisone 40 mg p.o. daily for a week then taper by 10 mg every other day. 2. Titrate FiO2 to keep O2 sat above the 90% only. 3. Gentle diuresis. 4. Treatment of hypercalcemia, consider pamidronate IV, nasal calcitonin. 5. No specific treatment for kyphoscoliosis, it will affect her lung with CO2 retention in the near future. 6. Titrate FiO2 with ambulation. Thank you. Subjective The patient continues to have shortness of breath with exertion, not at rest, she is on 3 L via nasal cannula O2 saturation 96%, she continues to have pulmonary vascular congestion, one event overnight where she desaturated has to be placed on the BiPAP. Currently she is back on nasal cannula. Review of Systems Review of Systems: Review of system was limited due to the patient history of dementia, otherwise it was unremarkable. Physical Exam Physical Exam: Vital signs are stable, 96% on 3 L, distant rhonchi bilaterally, hyperinflated lungs, no JVD, abdomen is benign, trace edema in the periphery. Overall cachexia and muscle wasting. No skin rash no oral lesions. Results & Data Vital Signs (Past 12 Hours) Vital Signs Temp Pulse Pulse Pulse Resp BP BP 08/18/18 11:44 36.9 C 98 H 22 113/64 08/18/18 11:13 84 20 08/18/18 11:00 08/18/18 09:00 08/18/18 08:00 08/18/18 07:52 119 H 24 08/18/18 07:42 142 H 28 H 143/89 H 08/18/18 07:30 113 H 26 H 08/18/18 07:25 08/18/18 07:20 08/18/18 07:08 37 C 86 16 154/73 H 08/18/18 07:00 79 08/18/18 04:03 37 C 62 18 113/62 08/18/18 03:25 78 16 Pulse Ox 08/18/18 11:44 96 08/18/18 11:13 94 08/18/18 11:00 95 08/18/18 09:00 94 08/18/18 08:00 97 08/18/18 07:52 97 08/18/18 07:42 91 08/18/18 07:30 91 08/18/18 07:25 90 08/18/18 07:20 88 L 08/18/18 07:08 90 08/18/18 07:00 08/18/18 04:03 95 08/18/18 03:25 95 Laboratory Results Leukocytosis was noted, the rest of her labs showed hyponatremia, hypokalemia, with hyperchloremia. Hypercalcemia as well. Diagnostic Findings Chest x-ray reviewed personally which showed bilateral interstitial disease, bilateral pleural effusion, pulmonary vascular congestion.
[2018-08-18] MEDS ORDERED: FUROSEMIDE 20 MG in SYRINGE 0 ML IV ONE (14:30)
[2018-08-18] MEDS ORDERED: PAMIDRONATE DISODIUM 60 MG in SODIUM CHLORIDE 0.9% 1000ML 1,000 ML IV SCH (15:15)
--- NOTE | 2018-08-18 17:29 | Family Medicine Progress Note ---
Date of Service August 18, 2018 Assessment & Plan (1) Hypercalcemia: 78yoF with hx of sarcoidosis, dementia, HLD, PFO, TIA, multinodular goiter-nontoxic, osteoporosis, Vit D deficiency, muscle cramps at night, gait disturbance and depression/anxiety presented to the ED for concern of hypercal cemia on labs completed by Dr. Solano. Acute Respiratory Failure - likely secondary to fluid overload vs exacerbation sarcoid symptoms , occurred on morning of 08/17, 08/18 - given 10 mg IV Lasix this morning, then an additional 20 mg IV lasix this afternoon - Recommendation appreciated by nephrology - Repeat CXR showed evidence consistent with sarcoidosis in addition to mild pleural effusions and bibasilar alveolar opacities - Pulmonology consulted , agrees with prednisone 40 mg daily x 1 week with taper by 10 mg every other day - Continue diuresis as needed - wean oxygen as tolerated Hypercalcemia likely in the setting of sarcoidosis: concern for increasing confusion -Ca levels increased from yesterday, likely due to fluid being held for fluid overload -In coordination with Nephrology, elected to administer one dose of Pamidronate , f/u calcium levels tmr, continue diuresis -CT head no acute abl -PTH , PTHrp VIT D levels pending -Received 1L NS bolus in the ED -no longer on NS given worsening respiratory status proably related to fluid overload despite EF 60% -Continue to monitor BMP Hx of Sarcoidosis with concern for infection -Bronchoscopy on 08/02 with one culture positive for enterobacter cloacae -Continue ciprofloxacin 500mg BID x 14 days -Continue Prednisone taper as above Possible UTI -UA dirty with 1+ LE, 30 WBC, trace blood -F/u urine cx -already on cipro which would provide coverage Hypomagnesemia -supplement as needed Hypokalemia -supplement as needed Dementia -Continue memantine Hx of TIA -Continue clopidogrel Hx of osteoporosis -Continue weekly alendronate Depression/anxiety -Continue escitalopram Code: DNR/DNI DVT prop: Lovenox SQ 30mg Dispo: med/surg telemetry PT/OT (2) Hypomagnesemia: (3) Sarcoidosis: (4) Dementia: (5) PFO (patent foramen ovale): (6) Depression with anxiety: (7) TIA (transient ischemic attack): (8) HLD (hyperlipidemia): (9) Multinodular goiter (nontoxic): (10) Osteoporosis: (11) Vitamin D deficiency: (12) Hypokalemia: Supervising Physician Co-Signing Physician Notes Attending attestation Pt seen and examined in concert with Dr. Luna. In agreement with the documented findings as noted in the resident documentation with any exceptions or additions as noted here. Overnight patient w/ gradual respiratory decompensation with unchanged CXR concerning for pulmonary edema. Significant improvement with bipap and diuresis, similar to previous day. On examination, diffuse rhonchi on BIPAP with decreased breath sounds at bases. S1/S2 nl, no MCG. Fluid overload 2/2 hydration in management of hypercalcemia - nephrology consultation - improved on BIPAP and weaned to 2LNC. Continue IV lasix with next dose this afternoon to prevent O/N desaturation. Hypercalcemia in the setting of sarcoidosis - iCa/corrected Ca stable as fluid bolus decreased. Per nephrology recommendation, addition of pamendronate and follow VIK and PTHRP. Metabolic encephalopathy - considerably improved with management of Ca and respiratory status. Abnormal urinalysis w/ AMS - tolerating ciprofloxacin Nutritional deficit/malnutrition - dietary consultation appreciated intermittent muscle fatigue with hypercalcemia - trend Ca, monitor eyelid Son is from [place] near [place] and would prefer SNF near him. Else see resident documentation as noted. Subjective Received report from nurse this morning that patient was experiences acute respiratory distress. Upon evaluation of the patient, She was diffusely wheezing with increased work of breathing, dyspnea. Oxygen saturation had dipped into the 80's per nursing. Her oxygen requirement went up to 6 L prior to respiratory therapist advancing to BIPAP. She was given nebulizer treatment at 10 mg Lasix, CXR appeared unchanged. Patient tolerated BIPAP and respiratory status improved and was transitioned to NC. Review of Systems Constitutional: no fever, no chills, no fatigue and no weakness Respiratory: + cough, + dyspnea and + wheezing Cardiovascular: no chest pain, no palpitations, no edema and no calf pain Gastrointestinal: no abdominal pain, no nausea, no vomiting and no change in stools Physical Exam Physical Exam: GENERAL APPEARANCE: alert and cooperative, respiratory distress HEAD: normocephalic. EYES: PERRL, EOMI. , vision is grossly intact. EARS: External auditory canals and tympanic membranes clear, hearing grossly intact. CARDIAC: Tachycardic, no murmurs LUNGS:diffuse wheezing, coarse breath sounds bilaterally LOWER EXTREMITY: no edema NEUROLOGICAL: CN II-XII intact grossly, moves extremities Results & Data Vital Signs (Past 12 Hours) Vital Signs Temp Pulse Pulse Pulse Resp BP BP 08/18/18 15:00 85 08/18/18 14:57 83 18 08/18/18 11:44 36.9 C 98 H 22 113/64 08/18/18 11:13 84 20 08/18/18 11:00 08/18/18 09:00 08/18/18 08:00 08/18/18 07:52 119 H 24 08/18/18 07:42 142 H 28 H 143/89 H 08/18/18 07:30 113 H 26 H 08/18/18 07:25 08/18/18 07:20 08/18/18 07:08 37 C 86 16 154/73 H 08/18/18 07:00 79 Pulse Ox 08/18/18 15:00 08/18/18 14:57 95 08/18/18 11:44 96 08/18/18 11:13 94 08/18/18 11:00 95 08/18/18 09:00 94 08/18/18 08:00 97 08/18/18 07:52 97 08/18/18 07:42 91 08/18/18 07:30 91 08/18/18 07:25 90 08/18/18 07:20 88 L 08/18/18 07:08 90 08/18/18 07:00 Resident Activity Tracking Resident Involvement: Resident Care Provided Care Provided: Adult Hospital Medicine
[2018-08-18] MEDS: HEPARIN SOD 5,000 UNIT/0.5 ML VIAL SQ SCH (20:20)
--- NOTE | 2018-08-18 23:52 | Consultation Report ---
DATE OF CONSULTATION: 08/15/2018 SUBJECTIVE: Ms. Garcia is a 78-year-old woman from [place]. Apparently, she has her own apartment at the [facility]. She does her own cooking or cleaning, although she does have someone come in to help from time to time. She has helped with issues of shopping by family members. Ms. Garcia apparently has a history of some degree of dementia. At the time seen by me, she was slightly confused and sleepy. Much of her history was obtained from the current clinical record as well as her [id number] who was present with her. Her history is one of sarcoidosis which was diagnosed over 17 years ago. She is followed by Dr. Anup Solano. She was unclear as to what medicines she has been on over the years. At the current time, she is taking prednisone, but the dose is unclear, memantine 28 mg daily, escitalopram 10 mg daily, alendronate 70 mg weekly and clopidogrel 75 mg every other day. Nonetheless, recently she was experiencing an increase in shortness of breath and cough and was bronchoscoped by Dr. Solano. Apparently, there were some purulent secretions that were cultured. She was empirically started on Cipro. Her cultures did grow out an Enterobacter, which was sensitive to Cipro. Her xnfenq-ff-gkg came to visit her on Tuesday and noted that she seemed to be increasingly confused and somewhat lethargic. As noted above, she does have some history of dementia. Nevertheless, because of that, she apparently took her to see her primary care physician. Blood work was ordered and she was notified later that she had a very high serum calcium and that she should go to the hospital. She denies having any specific symptoms. She has not been thirsty of late. According to her and her [id number], did not note that she has been drinking a lot of water. She has not been urinating a great deal. She has had no problems with abdominal pain or constipation. She has had no nausea or vomiting. She has had no bone pain. As an outpatient, she was noted to have a significant degree of hypercalcemia. Initially on her presentation here, her serum calcium was 14.2 mg/dL. A short time later, it was down to 13.6. It is slowly decline since that time with IV saline and the judicious use of furosemide. The patient says that she feels a little better, but is not back to her baseline. Her golozo-ji-bey seem to agree. She has no other particular symptoms or problems. She has been noted to have pulmonary hypertension, both on a recent echocardiogram here as well as previously. She also has a history of dementia which is felt to be mild to moderate in degree. She also has hyperlipidemia. She has had ASCVD with a history of a TIA. She has had a nontoxic multinodular goiter. She has a history of osteoporosis and vitamin D deficiency. CURRENT MEDICATIONS: As noted above. ALLERGIES: Reported allergies are sensitivity to ATORVASTATIN, DONEPEZIL, NAPROXEN, EXELON, SHELLFISH AND SIMVASTATIN. CURRENT MEDICATIONS: Include sodium chloride infusion as well as clopidogrel, escitalopram, prednisone 35 mg daily, Cipro 500 mg every 18 hours, donepezil 5 mg daily, albuterol via nebulizer, ____, diclofenac topical and heparin subQ q.12 hours. Today, she was apparently noted to be somewhat hypoxemic. Her oxygen saturation dropped to as low as 88, but was in the low 90s throughout the morning. She was started on oxygen via nasal cannula. The remainder of her past medical history, family history, social history and review of systems not outlined here or present elsewhere on her chart and I had nothing to add to that. OBJECTIVE: GENERAL: On physical exam, the patient appears as a very elderly frail woman older than her stated age of 78. VITAL SIGNS: Blood pressure when seen by me was 113/64, her pulse 98 and regular, respiratory rate 22 on 3 liters of oxygen via nasal cannula, her oxygen saturation was 96%. She is afebrile (36.9 degrees). SKIN: Shows slightly diminished skin turgor consistent with her age. She has no palpable lymphadenopathy. HEAD: Grossly normal. EYES: Grossly normal. The ocular fundi were not examined. EARS, NOSE, MOUTH AND THROAT: Unremarkable. She was edentulous and had an upper plate. Oral mucous membranes are moist. NECK: Supple. She has obvious jugular venous distention to the angle of the jaw lying at about 20 degrees. I hear no carotid bruit and there is no thyromegaly. CHEST: Clear to auscultation. I hear no wheezes, rales or rhonchi. She does have a mild degree of a kyphoscoliosis. CARDIAC: Shows a regular rhythm. S1 and S2 are normal. I hear no murmur or gallop. ABDOMEN: Nontender. She has no organomegaly or mass. Bowel sounds are present but not particularly active. I hear no abdominal bruits. EXTREMITIES: Show no cyanosis, clubbing or peripheral edema. NEUROLOGIC: Shows her to be somewhat lethargic and pleasantly confused. No focal signs are noted. Her current laboratory work from today shows a hemoglobin of 10.4 with a hematocrit of 30.8. Red cell indices are unremarkable. Her white count is 11,640 with a slight shift to the left with 83% neutrophils, 4.9% lymphocytes, 11.2% monocytes, 0.4% eosinophils and 0.1% basophils. Clinical chemistries from today show a sodium of 148 mmol/L, potassium of 2.9 mmol/L, chloride of 117 mmol/L, and CO2 content of 24 mmol/L. Her BUN is 16, her creatinine 1.23, which is stable. An estimated creatinine clearance while unreliable under these circumstances is 23.9. Her serum calcium is 11.9. Her serum albumin on presentation was 3.2. The following morning, it was 2.8. If her serum albumin is stable at that level, her corrected calcium would actually be in excess of 13 despite her saline. Her chest x-ray shows bilateral interstitial and alveolar airspace opacities. There is a question of early bilateral pleural effusions. She had an echocardiogram done which did show an elevated right ventricular pressure and changes consistent with pulmonary hypertension. Left ventricular ejection fraction appears preserved at 60-65%. ASSESSMENT: Hypercalcemia. In all likelihood, this is related to her sarcoidosis. She does appear to have osteoporotic bones on her scan and was taking alendronate. Apparently alendronate has been reordered. For her hypercalcemia, thus far, she has had attempts to saline diuresis. She has gotten a small amount of furosemide. Nonetheless, her serum creatinine remains somewhat elevated for a woman of her size. RECOMMENDATIONS: I would treat the patient with pamidronate. The usual starting dose would be 60-90 mg. I would probably start at 60, if not slightly smaller. I did notice that alendronate was ordered for her. However, given her frailty and the fact that at least for now she seems to be bed bound, I would be very reluctant to use that drug for fear of precipitating esophageal side effects. With the pamidronate, we might be able to slow her IV saline. Given her low serum albumin, I would expect that her saline will provoke the development of some degree of edema. Hopefully, she would not develop congestive heart failure. Lasix and low doses can be used as well as long as she is getting her saline. She will require close monitoring when getting her saline and pamidronate. No other immediate recommendations. She will continue to be followed by the nephrology service.
[2018-08-19] MEDS: ALBUT/IPRATROP 3MG/0.5MG NEB 3 ML VIAL NEB SCH ×6 (03:31→23:00)
[2018-08-19] MEDS: CIPROFLOXACIN 500 MG TAB PO SCH ×2 (05:52→23:40)
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
[2018-08-19 06:54] LABS: Hematocrit (blood only) 29.7 % (37-47); Hemoglobin 9.9 g/dL (12.0-16.0); Mean Corpuscular Hgb Conc 33.3 g/dL (32-36); Mean Corpuscular Volume 86.6 fL (80-100); Mean Platelet Volume 11.1 fL (7.4-10.4); Platelet Count 199 K/uL (130-400); RDW Coefficient of Variation 17.2 % (11.5-14.5); RDW Standard Deviation 53.9 fL (36.4-46.3); Red Blood Count 3.43 M/uL (4.2-5.4); White Blood Count 9.97 K/uL (4.8-10.8)
[2018-08-19 07:23] LABS: ALC (manual) 0.09 K/uL (1.2-3.4); Lymphocytes # (manual) 0.09 K/uL (1.2-3.4); Lymphocytes % (manual) 0.9 %; Monocytes # (manual) 0.61 K/uL (0.11-0.59); Monocytes % (manual) 6.1 %; RBC Morphology Unremarkable
[2018-08-19 07:30] LABS: Albumin Level 2.8 gm/dl (3.4-5.0); BUN Creatinine Ratio 14.5 (10-20); Calcium 10.8 mg/dl (8.5-10.1); Creatinine Clr Calc Pharmacy 28.8 ml/min; Est GFR (African American) 59.2; Est GFR (Non-African American) 51.1; Magnesium 1.6 mg/dl (1.8-2.4); Potassium 3.1 mmol/L (3.5-5.1)
[2018-08-19 07:32] LABS: Albumin Globulin Ratio 1.1 (0.9-2); Bilirubin,Total 0.4 mg/dl (0.2-1); Globulin 2.5 gm/dl (2.5-4.0); Total Protein 5.3 gm/dl (6.4-8.2)
[2018-08-19] MEDS: HEPARIN SOD 5,000 UNIT/0.5 ML VIAL SQ SCH ×2 (08:15→20:37)
[2018-08-19] MEDS: MEMANTINE PO SCH (08:15)
[2018-08-19] MEDS: predniSONE 10 MG TABLET PO SCH (08:15)
[2018-08-19] MEDS: DONEPEZIL HCL 5 MG TAB PO SCH (08:16)
[2018-08-19] MEDS: DICLOFENAC SOD 1% GEL 100 GM TUBE EXT SCH ×3 (08:16→20:38)
[2018-08-19] MEDS: ESCITALOPRAM OXALATE 10 MG TAB PO SCH (08:16)
[2018-08-19] MEDS ORDERED: POTASSIUM PHOS 3 MMOL/1 ML INFUSION IV STA (09:10)
--- NOTE | 2018-08-19 09:29 | Nephrology Progress Note ---
Date of Service August 19, 2018 Assessment & Plan (1) Hypercalcemia: -- Improving, corrected calcium 12 this AM -- VIK level pending -- PTH low -- PTHrP pending -- Clinically consistent with immobility and sarcoidosis -- Steroids per pulmonary (discussed with Dr. Riggs and Dr. Sethi this AM) -- UOP acceptable -- Good response to IV furosemide -- Poor oral intake -- Denies constipation -- Suggest restarting IVF with D5 1/2 NS @ 100 ml/hr -- Pamidronate 60 mg IV provided yesterday -- Repeat metabolic profile + Mg + PO4 tomorrow AM (2) Hypomagnesemia: -- Mg sulfate 2 grams IV ordered this AM (3) Sarcoidosis: -- Management per pulmonary -- Agree with continued steroids (4) Dementia: (5) Hypokalemia: -- Kphos 30 mmol this AM -- 20 mEq added to IVF -- Additional 10 mEq IV ordered this AM -- Repeat BMP this afternoon -- Monitor metabolic profile + Mg + PO4 daily Subjective Some increased work of breathing noted overnight. Patient was treated with IV furosemide (total 30 mg yesterday) and IVF were held. Good urine output. Net negative fluid balance. Lynnette feels reasonably well this morning. No fevers or chills. She is notable weak. Appetite is very poor. She denies constipation though she did not move her bowels yesterday. She denies pain. Review of Systems Review of Systems: All systems reviewed & are unremarkable except as noted in HPI & below Physical Exam Constitutional: + cachectic and + frail appearing Eyes: no scleral abnormality and no corneal abnormality ENMT: Mouth: + dry oral mucous membranes; no oral mucosal abnormality Neck: normal visual inspection and trachea midline Respiratory: normal respiratory effort Auscultation: lungs clear to auscultation bilaterally and + rhonchi Cardiovascular: Heart Sounds: normal S1 and normal S2 Vessels: + JVD Gastrointestinal (Abdomen): Inspection/Auscultation: normal bowel sounds Percussion/Palpation: abdomen soft; abdomen nontender Musculoskeletal: Extremities: no cyanosis and no clubbing Skin: normal turgor; no rashes Neurologic: Motor/Sensory: no tremor and no asterixis Psychiatric: Affect: euthymic affect Results & Data Vital Signs (Past 12 Hours) Vital Signs Temp Pulse Pulse Pulse Resp BP BP 08/19/18 07:12 63 16 08/19/18 06:53 36.7 C 67 18 139/78 08/19/18 04:40 36.5 C 65 20 129/81 08/18/18 23:25 76 08/18/18 23:00 36.7 C 77 18 128/80 Pulse Ox 08/19/18 07:12 95 08/19/18 06:53 98 08/19/18 04:40 96 08/18/18 23:25 08/18/18 23:00 92 Laboratory Results Laboratory Results - last 24 hr 08/19/18 08/19/18 06:36 06:36 WBC 9.97 RBC 3.43 L Hgb 9.9 L Hct 29.7 L MCV 86.6 MCH 28.9 MCHC 33.3 RDW Std Deviation 53.9 H RDW Coeff of Zainab 17.2 H Plt Count 199 MPV 11.1 H Neutrophils % (Manual) 93.0 Lymphocytes % (Manual) 0.9 Monocytes % (Manual) 6.1 Neutrophils # (Manual) 9.27 H Total Absolute Neuts 9.27 H Lymphocytes # (Manual) 0.09 L Total Abs Lymphocytes 0.09 L Monocytes # (Manual) 0.61 H RBC Morphology Unremarkable Sodium 146 H Potassium 3.1 L Chloride 114 H Carbon Dioxide 29 Anion Gap 3.0 BUN 15 Creatinine 1.04 Est Cr Clr Drug Dosing 28.8 Est GFR ( Amer) 59.2 Est GFR (Non-Af Amer) 51.1 BUN/Creatinine Ratio 14.5 Glucose 80 Calcium 10.8 H Phosphorus 2.0 L Magnesium 1.6 L Total Bilirubin 0.4 AST 51 H ALT 28 Alkaline Phosphatase 105 Total Protein 5.3 L Albumin 2.8 L Globulin 2.5 Albumin/Globulin Ratio 1.1
[2018-08-19] MEDS ORDERED: POTASSIUM PHOSPHATE 30 MMOL in SODIUM CHLORIDE 0.9% 500 ML IV ONE (10:00)
--- NOTE | 2018-08-19 10:12 | Pulmonology Progress Note ---
Date of Service August 19, 2018 Assessment & Plan (1) Sarcoidosis: Impression: 1. Sarcoidosis, currently stable. 2. Kyphoscoliosis, with restrictive pattern. 3. Pulmonary hypertension with PA pressure in the range of 40. 4. Dementia and clinical declination. 5. Hypercalcemia, etiology is likely related to sarcoidosis versus hypothyroidism. 6. Hypothyroidism. Plan: 1. The patient does not seem to respond to prednisone p.o., absorption could be an issue, will change her to Solu-Medrol 40 mg IV every 12 hours. 2. Titrate FiO2 to keep O2 sat above the 90% only. 3. Gentle diuresis. 4. Treatment of hypercalcemia, consider pamidronate IV, nasal calcitonin. 5. No specific treatment for kyphoscoliosis, it will affect her lung with CO2 retention in the near future. 6. Titrate FiO2 with ambulation. 7. The patient is not a candidate for salvage therapy for sarcoidosis, however, her lungs are noted with noncaseating granulomas bilaterally. Thank you. Subjective The patient continues to have cough nonproductive, continues to have shortness of breath even walking to the bathroom, began improvement since yesterday however her O2 saturation is 95% on 3 L. No events overnight. Review of Systems Review of Systems: Review of system apart from the above was unremarkable including 10 systems. Physical Exam Physical Exam: Vital signs are stable, S1-S2 regular rate and rhythm, her lungs with scattered rhonchi, abdomen is benign, no edema. Neurologically he is intact. Multiple digit deformity due to osteoarthritis, no skin rash, no oral thrush. Results & Data Vital Signs (Past 12 Hours) Vital Signs Temp Pulse Pulse Pulse Resp BP BP 08/19/18 07:12 63 16 08/19/18 06:53 36.7 C 67 18 139/78 08/19/18 04:40 36.5 C 65 20 129/81 08/18/18 23:25 76 08/18/18 23:00 36.7 C 77 18 128/80 Pulse Ox 08/19/18 07:12 95 08/19/18 06:53 98 08/19/18 04:40 96 08/18/18 23:25 08/18/18 23:00 92 Laboratory Results Labs showed stable CBC and BMP. Diagnostic Findings No new imaging.
[2018-08-19] MEDS: D5W AND 1/2NSS + 20MEQ KCL 20 MEQ/1,000 ML BAG IV SCH ×2 (10:20→23:40)
[2018-08-19] MEDS: MAGNESIUM SULFATE / D5W 1 GM/100 ML BAG IV SCH ×2 (10:21→11:21)
[2018-08-19] MEDS: CALCITONIN SALMON NA 200 IU/AC 3.7 ML BTL SCH (10:48)
[2018-08-19] MEDS: POTASSIUM CHLORIDE / WTR 10 MEQ/100 ML PLCT IV SCH ×2 (12:28→13:30)
[2018-08-19] MEDS: GUAIFENESIN/DEXTROM SYRUP 100MG/10MG 5ML UDC PO PRN (16:38)
[2018-08-19] MEDS: FUROSEMIDE 20 MG TAB PO SCH (16:38)
[2018-08-19 17:41] LABS: Calcium 10.4 mg/dl (8.5-10.1); Est GFR (African American) 57.2; Est GFR (Non-African American) 49.3; Potassium 4.1 mmol/L (3.5-5.1)
[2018-08-19] MEDS: methylPREDNISolone 40 MG in SYRINGE 0 ML IV SCH (20:37)
[2018-08-20] MEDS: ALBUT/IPRATROP 3MG/0.5MG NEB 3 ML VIAL NEB SCH ×6 (03:07→22:50)
[2018-08-20 06:51] LABS: Hematocrit (blood only) 31.2 % (37-47); Immature Granulocytes # (auto) 0.03 K/uL (0.00-0.02); Immature Granulocytes % (auto) 0.3 %; Lymphocytes % (auto) 4.2 %; Mean Corpuscular Hgb Conc 32.1 g/dL (32-36); Mean Corpuscular Volume 87.4 fL (80-100); Mean Platelet Volume 11.1 fL (7.4-10.4); Monocytes # (auto) 0.67 K/uL (0.11-0.59); Neutrophils % (auto) 88.5 %; Platelet Count 220 K/uL (130-400); RDW Coefficient of Variation 17.2 % (11.5-14.5); RDW Standard Deviation 54.1 fL (36.4-46.3); Red Blood Count 3.57 M/uL (4.2-5.4)
[2018-08-20 07:24] LABS: Albumin Level 2.8 gm/dl (3.4-5.0); BUN Creatinine Ratio 14.3 (10-20); Calcium 9.3 mg/dl (8.5-10.1); Creatinine Clr Calc Pharmacy 30.4 ml/min; Est GFR (African American) 59.9; Est GFR (Non-African American) 51.7; Potassium 4.3 mmol/L (3.5-5.1)
[2018-08-20 07:30] LABS: Bilirubin,Total 0.4 mg/dl (0.2-1); Globulin 2.7 gm/dl (2.5-4.0); Phosphorus 2.7 mg/dl (2.5-4.9); Total Protein 5.5 gm/dl (6.4-8.2)
[2018-08-20] MEDS: DICLOFENAC SOD 1% GEL 100 GM TUBE EXT SCH ×3 (07:39→20:36)
[2018-08-20] MEDS: CALCITONIN SALMON NA 200 IU/AC 3.7 ML BTL SCH (07:40)
[2018-08-20] MEDS: HEPARIN SOD 5,000 UNIT/0.5 ML VIAL SQ SCH ×2 (07:40→20:36)
[2018-08-20] MEDS: MEMANTINE PO SCH (07:40)
[2018-08-20] MEDS: CLOPIDOGREL BISULFATE 75 MG TAB PO SCH (07:40)
[2018-08-20] MEDS: DONEPEZIL HCL 5 MG TAB PO SCH (07:41)
[2018-08-20] MEDS: ESCITALOPRAM OXALATE 10 MG TAB PO SCH (07:41)
[2018-08-20] MEDS: FUROSEMIDE 20 MG TAB PO SCH (07:41)
[2018-08-20] MEDS: methylPREDNISolone 40 MG in SYRINGE 0 ML IV SCH (07:46)
[2018-08-20] MEDS: D5W AND 1/2NSS + 20MEQ KCL 20 MEQ/1,000 ML BAG IV SCH (10:10)
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
--- NOTE | 2018-08-20 11:36 | Nephrology Progress Note ---
Date of Service August 20, 2018 Assessment & Plan (1) Hypercalcemia: -- Improved, serum calcium acceptable -- Non-PTH mediated -- VIK level pending -- PTHrP pending -- Clinically consistent with immobility and sarcoidosis -- Stop IVF this morning -- Pamidronate 60 mg IV provided 08/18/18 -- Repeat metabolic profile + Mg + PO4 tomorrow AM (2) Hypomagnesemia: -- Continue to monitor and replace as needed (3) Sarcoidosis: -- Improving with treatment (4) Dementia: (5) Hypokalemia: -- Monitor metabolic profile + Mg + PO4 daily Subjective No acute events overnight. Lynnette feels well this morning. She denies significant dyspnea. She is out of bed. Appetite improved. No fevers or chills. No cough. No lightheadedness or dizziness. Denies constipation. Review of Systems Review of Systems: All systems reviewed & are unremarkable except as noted in HPI & below Physical Exam Constitutional: + cachectic and + frail appearing Eyes: no scleral abnormality and no corneal abnormality ENMT: Mouth: + dry oral mucous membranes; no oral mucosal abnormality Neck: normal visual inspection and trachea midline Respiratory: normal respiratory effort Auscultation: lungs clear to auscultation bilaterally Cardiovascular: Heart Sounds: normal S1 and normal S2 Vessels: + JVD Gastrointestinal (Abdomen): Inspection/Auscultation: normal bowel sounds Percussion/Palpation: abdomen soft; abdomen nontender Musculoskeletal: Extremities: no cyanosis and no clubbing Skin: normal turgor; no rashes Neurologic: Motor/Sensory: no tremor and no asterixis Psychiatric: Affect: euthymic affect Results & Data Vital Signs (Past 12 Hours) Vital Signs Temp Pulse Pulse Resp BP Pulse Ox 08/20/18 11:26 69 22 96 08/20/18 07:17 36.6 C 20 122/70 99 08/20/18 06:55 68 18 95 08/20/18 04:00 36.8 C 71 18 124/74 95 08/20/18 01:58 75 Laboratory Results Laboratory Results - last 24 hr 08/19/18 08/20/18 08/20/18 17:06 06:23 06:23 WBC 9.60 RBC 3.57 L Hgb 10.0 L Hct 31.2 L MCV 87.4 MCH 28.0 MCHC 32.1 RDW Std Deviation 54.1 H RDW Coeff of Zainab 17.2 H Plt Count 220 MPV 11.1 H Immature Gran % (Auto) 0.3 Neut % (Auto) 88.5 Lymph % (Auto) 4.2 [place] % (Auto) 7.0 Eos % (Auto) 0.0 Baso % (Auto) 0.0 Immature Gran # (Auto) 0.03 H Neut # (Auto) 8.50 H Lymph # (Auto) 0.40 L [place] # (Auto) 0.67 H Eos # (Auto) 0.00 Baso # (Auto) 0.00 Sodium 144 144 Potassium 4.1 D 4.3 Chloride 112 H 113 H Carbon Dioxide 25 26 Anion Gap 7.0 5.0 BUN 15 15 Creatinine 1.07 1.03 Est Cr Clr Drug Dosing 28.0 30.4 Est GFR ( Amer) 57.2 59.9 Est GFR (Non-Af Amer) 49.3 51.7 BUN/Creatinine Ratio 14.0 14.3 Glucose 153 H 118 H Calcium 10.4 H 9.3 Phosphorus 2.7 Total Bilirubin 0.4 AST 32 ALT 25 Alkaline Phosphatase 97 Total Protein 5.5 L Albumin 2.8 L Globulin 2.7 Albumin/Globulin Ratio 1.0
--- NOTE | 2018-08-20 13:34 | Pulmonology Progress Note ---
Date of Service August 20, 2018 Assessment & Plan (1) Sarcoidosis: Impression: 1. Sarcoidosis, currently stable. 2. Kyphoscoliosis, with restrictive pattern. 3. Pulmonary hypertension with PA pressure in the range of 40. 4. Dementia and clinical declination. 5. Hypercalcemia, etiology is likely related to sarcoidosis versus hypothyroidism. 6. Hypothyroidism. Plan: 1. We will try to change the prednisone 40 mg p.o. daily. Calcium remains slightly elevated although the level is 9.3 but the corrected level with albumin will bring it up to 10.5. 2. Titrate FiO2 to keep O2 sat above the 90% only. 3. She will need home O2. 4. Treatment of hypercalcemia, consider pamidronate IV, nasal calcitonin. 5. No specific treatment for kyphoscoliosis. 6. Appreciate renal input, discussed with Dr. Riggs, appreciate their input. 7. The patient is not a candidate for salvage therapy for sarcoidosis, VIK level is pending. Thank you. Subjective The patient is feeling slightly better however she continues to have shortness of breath with any exertion, she denies cough or sputum production, no chest pain, she is requiring oxygen which she did not have in the past. Likely she will need it even to go home with. Review of Systems Review of Systems: Review of system otherwise was unremarkable except for the above. Physical Exam Physical Exam: Physical exam revealed stable vital signs, 93% on 2 L, kyphoscoliosis, scattered rhonchi, S1-S2, abdomen is benign, no edema, cachexia. Results & Data Vital Signs (Past 12 Hours) Vital Signs Temp Pulse Pulse Resp BP Pulse Ox 08/20/18 12:00 36.6 C 20 129/83 93 08/20/18 11:26 69 22 96 08/20/18 07:17 36.6 C 20 122/70 99 08/20/18 06:55 68 18 95 08/20/18 04:00 36.8 C 71 18 124/74 95 08/20/18 01:58 75 Laboratory Results Labs showed stable CBC, BMP, calcium has normalized to 9.3, albumin is 2.8. Diagnostic Findings No new imaging.
[2018-08-20] MEDS: predniSONE 20 MG TAB PO SCH (13:46)
[2018-08-20] MEDS: CIPROFLOXACIN 500 MG TAB PO SCH (17:32)
[2018-08-21 02:16] LABS: PTH Related Protein 14 pg/mL (14-27); Vitamin D3,1,25 110 pg/mL
[2018-08-21] MEDS: ALBUT/IPRATROP 3MG/0.5MG NEB 3 ML VIAL NEB SCH ×4 (03:14→15:24)
[2018-08-21] MEDS ORDERED: ALENDRONATE SODIUM 70 MG TAB PO SCH (06:00)
[2018-08-21 06:53] LABS: Hematocrit (blood only) 29.1 % (37-47); Hemoglobin 9.5 g/dL (12.0-16.0); Immature Granulocytes # (auto) 0.03 K/uL (0.00-0.02); Immature Granulocytes % (auto) 0.3 %; Lymphocytes # (auto) 0.43 K/uL (1.2-3.4); Lymphocytes % (auto) 4.9 %; Mean Corpuscular Hgb Conc 32.6 g/dL (32-36); Mean Corpuscular Volume 87.4 fL (80-100); Mean Platelet Volume 9.9 fL (7.4-10.4); Monocytes # (auto) 0.96 K/uL (0.11-0.59); Neutrophils # (auto) 7.34 K/uL (1.4-6.5); Neutrophils % (auto) 83.8 %; Platelet Count 200 K/uL (130-400); RDW Coefficient of Variation 17.3 % (11.5-14.5); RDW Standard Deviation 54.6 fL (36.4-46.3); Red Blood Count 3.33 M/uL (4.2-5.4); White Blood Count 8.76 K/uL (4.8-10.8)
[2018-08-21 07:26] LABS: Albumin Level 2.8 gm/dl (3.4-5.0); BUN Creatinine Ratio 19.7 (10-20); Calcium 9.1 mg/dl (8.5-10.1); Creatinine Clr Calc Pharmacy 31.5 ml/min; Magnesium 1.9 mg/dl (1.8-2.4); Potassium 3.9 mmol/L (3.5-5.1)
[2018-08-21 07:28] LABS: Albumin Globulin Ratio 1.3 (0.9-2); Bilirubin,Total 0.4 mg/dl (0.2-1); Globulin 2.2 gm/dl (2.5-4.0); Phosphorus 2.5 mg/dl (2.5-4.9)
[2018-08-21] MEDS: MEMANTINE PO SCH (08:06)
[2018-08-21] MEDS: ESCITALOPRAM OXALATE 10 MG TAB PO SCH (08:06)
[2018-08-21] MEDS: HEPARIN SOD 5,000 UNIT/0.5 ML VIAL SQ SCH (08:06)
[2018-08-21] MEDS: DONEPEZIL HCL 5 MG TAB PO SCH (08:06)
[2018-08-21] MEDS: DICLOFENAC SOD 1% GEL 100 GM TUBE EXT SCH ×2 (08:07→13:35)
[2018-08-21] MEDS: predniSONE 20 MG TAB PO SCH (08:51)
[2018-08-21] MEDS ORDERED: FUROSEMIDE 20 MG TAB PO SCH (09:00)
--- NOTE | 2018-08-21 10:33 | Nephrology Progress Note ---
Date of Service August 21, 2018 Assessment & Plan (1) Hypercalcemia: -- Non-PTH mediated, VIK and PTHrP pending --his calcium improved after 1 dose of pamidronate, IV fluid and Lasix. -- Clinically consistent with immobility and sarcoidosis -- Lasix can be used as needed however currently looks like her volume volume status acceptable and hypercalcemia resolved. Will sign off. Please schedule for outpatient follow-up with Dr. Mcguire in 2-3 weeks. She should have at least weekly lab to follow-up on hypercalcemia and lab results should be forwarded to Dr. Mcguire. (2) Hypomagnesemia: -- Continue to monitor and replace as needed (3) Sarcoidosis: -- Improving with treatment (4) Dementia: (5) Hypokalemia: -- Monitor metabolic profile + Mg + PO4 daily Francesco Church was seen examined in her room this morning. She continues to have some shortness of breath but denies any other symptoms. No fever or chills. Acute kidney injury resolved, creatinine staying around 0.9-1.0. Calcium improved. Physical Exam Constitutional: WD/WN, vitals as above Respiratory: Auscultation: + rhonchi Cardiovascular: RRR, no murmur, no edema Neurologic: moves all extremities and awake Psychiatric: A+Ox3, euthymic affect Results & Data Vital Signs (Past 12 Hours) Vital Signs Temp Pulse Pulse Pulse Resp BP BP 08/21/18 07:28 83 16 08/21/18 07:08 36.7 C 82 16 114/67 08/21/18 04:14 37.0 C 102 H 20 114/45 L 08/21/18 00:20 78 08/20/18 22:50 81 16 08/20/18 22:41 36.9 C 89 20 117/67 Pulse Ox 08/21/18 07:28 93 08/21/18 07:08 95 08/21/18 04:14 97 08/21/18 00:20 08/20/18 22:50 97 08/20/18 22:41 92
[2018-08-21] MEDS: CIPROFLOXACIN 500 MG TAB PO SCH (11:28)
--- NOTE | 2018-08-21 13:05 | Pulmonology Progress Note ---
Date of Service August 21, 2018 Assessment & Plan (1) Sarcoidosis: acute hypoxic respiratory failure now improved sarcoidosis denies shortness of breath today continue steroids with slow taper down to 20 mg until seen as outpatient hypercalcemia improved recent bronch with enterobacter will complete abx after tomorrow Subjective denies shortness of breath. no chest pain Physical Exam Physical Exam: Constitutional: Comfortable NAD in chair HEENT: normocephalic atraumatic. CV: RRR nl s1,s2 no murmurs rubs or gallops Lungs: clear to auscultation bilaterally. no accessory muscle use Abd: soft nontender nondistended. normal bowel sounds Ext: no edema. no cyanosis, no clubbing Skin: warm dry Neuro: alert answers appropriately but confused. moving all extremities Psych: normal mood and affect Results & Data Vital Signs (Past 12 Hours) Vital Signs Temp Pulse Resp BP BP Pulse Ox 08/21/18 11:19 36.5 C 76 20 129/73 93 08/21/18 11:07 75 16 93 08/21/18 07:28 83 16 93 08/21/18 07:08 36.7 C 82 16 114/67 95 08/21/18 04:14 37.0 C 102 H 20 114/45 L 97
--- NOTE | 2018-08-21 14:02 | Discharge Summary ---
Date of Service August 21, 2018 Admission HPI Per Admitting Provider 78yoF with hx of sarcoidosis, dementia, HLD, PFO, TIA, multinodular goiter- nontoxic, osteoporosis, Vit D deficiency, muscle cramps at night, gait disturbance and depression/anxiety presented to the ED for concern of hyp ercalcemia on labs completed today by Dr. Solano. Per family (neices and son), pt's health has been declining for the past few weeks. She has had trouble walking and is more confused and forgetful. [facility]. Today she had appt with PCP and Dr. Solano who did some labs and started her on abx (cipro) and prednisone for recent bronchoscopy culture on 08/02 being positive. He then called them to go to the ED for concern of hypercalcemia. Pt is demented and not a reliable historian but reports being comfortable and denies any MAGANA/dizziness, fever, cp, sob, abdominal pain, n/v, dysuria. She is noted to be coughing. PSHx: appendectomy, tonsillectomy and adenoidectomy, and total abdominal hysterectomy Admission Exam Per Admitting Provider General: In NAD HEENT: palpable nodular goiter, moist mucous membranes Neuro: alert, demented CV: RRR, no m/r/g PULM: Occasional crackles appreciated, equal breath sounds bilaterally ABDOMEN: +BS, non-distended, NTTP in all quadrants LE: no calf TTP, no LE edema Principal Diagnosis Hypercalcemia, sarcoidosis Discharge Exam General Appearance: Awake, alert & oriented, comfortable in general, NAD. Thin, frail habitus. CV: +S1S2 RRR, no murmur. Pulm: Clear to auscultation throughout. NC oxygen in place. Abdomen: +BS, soft, non-tender, non-distended. Extremities: No pedal edema or calf tenderness. Moving all extremities natur ally and easily. Neuro: No gross neuro deficits. Discharge Data Allergies Allergy/AdvReac Type Severity Reaction Status Date / Time atorvastatin Allergy Unknown Unknown Verified 08/15/18 21:07 donepezil [From Aricept] Allergy Unknown Unknown Verified 08/15/18 21:07 naproxen [From Aleve] Allergy Unknown Unknown Verified 08/15/18 21:07 rivastigmine [From Exelon] Allergy Unknown Unknown Verified 08/15/18 21:07 shellfish derived AdvReac Unknown Unknown Verified 08/15/18 21:10 simvastatin AdvReac Unknown Unknown Verified 08/15/18 21:10 Consultations Pulmonology progress note assessment and plan on 21 August 2018 (1) Sarcoidosis: acute hypoxic respiratory failure now improved sarcoidosis denies shortness of breath today continue steroids with slow taper down to 20 mg until seen as outpatient hypercalcemia improved recent bronch with enterobacter will complete abx after tomorrow Nephrology progress note assessment and plan on 21 August 2018 (1) Hypercalcemia: -- Non-PTH mediated, VIK and PTHrP pending --his calcium improved after 1 dose of pamidronate, IV fluid and Lasix. -- Clinically consistent with immobility and sarcoidosis -- Lasix can be used as needed however currently looks like her volume volume status acceptable and hypercalcemia resolved. Will sign off. Please schedule for outpatient follow-up with Dr. Mcguire in 2-3 weeks. She should have at least weekly lab to follow-up on hypercalcemia and lab results should be forwarded to Dr. Mcguire. (2) Hypomagnesemia: -- Continue to monitor and replace as needed (3) Sarcoidosis: -- Improving with treatment (4) Dementia: (5) Hypokalemia: -- Monitor metabolic profile + Mg + PO4 daily Ordered Studies 08/15/18 18:36 CT head/brain wo con Stat IMPRESSION: No acute intracranial findings pCXR single view on [id number] FINDINGS: No pneumothorax. The heart is stable in size. Bilateral coarse interstitial thickening and bilateral mid to lower lung zone airspace opacities persist. There may be trace bilateral pleural effusions. IMPRESSION: No change in the bilateral interstitial and alveolar airspace opacities. Hospital Course (1) Hypercalcemia: 78-year-old female was admitted on 15 August 2018 for concerns for hypercalcemia. Hypercalcemia: Admit Ca 14.2, likely in the setting of sarcoidosis. Concern for increasing confusion. CT scan without acute findings. Given NS IVF. Low parathyroid hormone, borderline normal PTHrp. VIK pending. See nephrology consult, they recommended pamidronate which was given on Apr. Also given intr anasal calcitonin. - Consider outpatient cancer screening evaluation / update. Sarcoidosis and concern for infection: Bronchoscopy on 10Apr had one culture positive for Enterobacter cloacae. CMV negative. 25Apr started on Cipro (q18h for renal dosing) for planned 14 day course. Started on prednisone tapering course as well with planned 40 mg daily for seven days, then 30 mg daily for seven days, then 20 mg daily until seen by pulmonology. Acute respiratory failure: Thought to be secondary to fluid overload versus exacerbation of sarcoid symptoms. 25Apr TTE noted EF 60-65%, normal LVSF, mod TR. Given rounds of Lasix. Briefly on BiPAP. - Recommend Lasix prn at this point. Pulmonary hypertension: See pulmonology consult. Note their recommendations on IV fluids. Agrees with prednisone taper. Possible UTI: 23Apr UCx positive for diptheria. Asymptomatic, so no antibiotics started for this. Hypomagnesemia: As low as 1.6. Replaced, monitoring. Hypokalemia: As low as K 2.9. Replaced, monitoring. Ongoing medical issues: - Dementia: Continue memantine and Aricept. - TIA: Continue Plavix. - Osteoporosis: Continue alendronate. - Depression and anxiety: Continue escitalopram. - Multinodular goiter. Code status: DO NOT RESUSCITATE. Diet: Regular. DVT prophy: Heparin while in the hospital. PT/OT: Recommends rehab. Disbo: Admitted to [facility] with telemetry. Case management onboard. Office of Aging involved as well (see case management notes). Discharge to [facility]. 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: (7) Hypomagnesemia: (8) Hypokalemia: (9) Dementia: (10) TIA (transient ischemic attack): (11) Osteoporosis: (12) Depression with anxiety: (13) Multinodular goiter (nontoxic): Total Time Total Time Spent Total Time Spent (In Minutes): Less than 30 min Discharge Plan Discharge Items Patient Disposition: Transfer Acute Care Hospital Reason For Visit: HYPERCALCEMIA Discharge Diagnosis: Hypercalcemia, sarcoidosis Discharge Goals: Decrease discomfort, Improve disease control and Improve function Activity: Per 'Additional Instructions' section Non-emergency contact: Primary Care Provider Call non-emergency contact if: you have any medication questions Follow-up/Referrals: Aicha Rousseau MD [Primary Care Provider] - Diet: Regular Addtl Provider Instructions: You were admitted to the hospital on August 15, 2018 due to high levels of calcium. While in the hospital, we evaluated the following issues: Hypercalcemia: This is a very high level of calcium in your blood. This was likely caused by your sarcoidosis lung disease. It was treated here with medications to lower your calcium. - Please follow-up with Dr. Mcguire, the pre sales network engineer, in 2-3 weeks after hospital discharge for ongoing care. - Please obtain at least weekly lab work to recheck your calcium levels in the interim period. Sarcoidosis and concern for lung infection: Your bronchoscopy back on August 02 was somewhat suggestive of a lung infection. You were started on an antibiotic called Cipro. Please continue this for another nine days. You were also started on prednisone (an oral steroid) which you should take as a slow taper. - Please follow-up with pulmonology for their recommendations on how to hopefully come off of prednisone entirely. Acute respiratory failure: You were noted to have a brief period of severe breathing difficulties requiring emergency medication and use of the BiPAP breathing machine. This appears to have improved significantly. You have been receiving a water pill called Lasix. We recommend that your doctors provide this as needed if it appears that you are having some buildup of fluid in your body. Otherwise, you should continue with the medications that you are on prior to this admission. You are being discharged to [facility] for acute rehabilitation. Please work with her medical providers for the above care as well as ultimate d isposition and follow-up with your primary care provider, nephrology, and pulmonology as discussed above. Prescriptions: New donepezil 5 mg Tablet 5 mg PO QAM 30 Days Qty: 30 RF: 0 ciprofloxacin HCl 500 mg Tablet 500 mg PO Q18H 9 Days Qty: 12 RF: 0 prednisone 10 mg tablet 40 mg PO DAILY Qty: 100 RF: 0 Continued clopidogrel [Plavix] 75 mg Tablet 75 mg PO Q2D RF: 0 alendronate 70 mg tablet 70 mg PO WK RF: 0 escitalopram oxalate 10 mg tablet 10 mg PO DAILY RF: 0 memantine 28 mg capsule,sprinkle,ER 24hr 28 mg PO DAILY RF: 0 Discontinued prednisone 10 mg tablet See Rx Instructions .ROUTE .COMPLEX RF: 0 Stand-Alone Forms: [facility] Discharge Orders: Discharge Order (Routine); Ordered 08/21/18 Ordered By: Thien Handbury Admission Data Admit Date/Time: 08/15/18 21:45 Attending Provider: Jacobo Cramer Admit Provider: David Murray Primary Care Provider: Aicha Rousseau V. Other Providers: David Murray ; Anup Solano ; Brandon Aranda ; Francois Riggs ; IRB Approved Study,Odalys Service: Telemetry Medical Other Interventions: Discharge Summary Assessment (RN) Last Done: 08/21/18 15:56 DC Date/Time DO NOT enter until pt leaves facility: 08/21/18 16:49 Supervising Physician Co-Signing Physician Notes I personally examined the patient and verified all modi points of history and exam, discussed case, and agree with decision making with Dr Saab. Feeling better. Feeling up to going to rehab. Case management/office of the aging aware family situation. Vitals noted, in general she is awake and alert pleasant no distress. HEENT normocephalic atraumatic mucous members moist. Breathing unlabored no accessory muscle use good effort. Skin shows no rashes no pallor or icterus. Hypercalcemiaappears most likely due to sarcoid. Steroids, periodic basic metabolic panel. Ongoing bisphosphonate. For completeness sake, she should have outpatient work-up for common malignancies such as breast and colon if she is not up-to-date, although overall the situation does heavily points towards hypercalcemia from sarcoid. Stable for rehab, otherwise as above. Resident Activity Tracking Resident Involvement: Resident Care Provided Care Provided: Adult Hospital Medicine
== END 2018-08-21 16:49 | disposition short-term general hospital (02) | DRG 640 ==
LOC: ED 17:13 → 2W 21:45 → SUATTDRO 21:45 → 2W 22:04

== ENCOUNTER 2018-09-14 12:44 | Inpatient (IN) ==
[2018-09-14] MEDS ORDERED: ONDANSETRON INJ 2 MG/ML 2 ML VIAL IV PRN (18:24)
[2018-09-14] MEDS ORDERED: MAGNESIUM HYDROXIDE SUSP 30 ML UDC PO PRN (18:24)
--- NOTE | 2018-09-14 18:24 | History & Physical Report ---
Date of Service September 14, 2018 Assessment & Plan (1) Abdominal pain: CTAP as noted with mets to chest Likely related to mass Intolerance of PO leading to FTT Heme/onc c/s pending Full liquid diet CBC, BMP pending IVF (2) Sarcoidosis: Continue home steroids and O2 (3) Dementia: continue home meds (4) Hypokalemia: Noted on prior admission, awaiting labs and will replace if needed (5) TIA (transient ischemic attack): Continue plavix (6) Depression with anxiety: continue home meds (7) Hypercalcemia: Noted on prior admission, awaiting labs and will replace if needed (8) Hypomagnesemia: Noted on prior admission, awaiting labs and will replace if needed (9) DVT prophylaxis: SCDs for now Will order lovenox if cr is WNL Med rec not completed yet. Nursing advised and awaiting action. History of Present Illness Primary Care Provider: Aicha Rousseau MD 78 y/o F who was a direct admission from for failure to thrive and intolerance of PO. Son states that this has been an ongoing issue for several weeks. Pt will attempt PO intake and shortly after have LUQ abd pain that is sharp and stabbing. She does not have n/v with this, but due to the pain she has been restricting her intake. Her appetite has been low in general as well. They have been trying Boost for the last 2-3 weeks, but this causes the same pain so pt avoids as well. He notes that she does seem to tolerate small amounts of ice cream or soup on occasion, but not much. Due to these sx, pt was referred to for EGD. saw pt in the office yesterday and ordered a CTAP. Findings include a large LUQ mass that is of unclear etiology but involves the pancreas and spleen. Due to this in the setting of FTT, pt was referred for admission. Pt has no prior hx of cancer or other reason to have an active hem/onc physician. Son states that pt's dementia has worsened in the last few weeks as well. Pt states she feels fine at present, but hasn't tried to eat anything recently. Pt denies fever, SOB, chest pain, abd pain, n/v/c/d, LE pain or swelling. Son states that pt was started on home O2 3L when she was d/c'f from [facility] on 08/15. Allergies Allergy/AdvReac Type Severity Reaction Status Date / Time donepezil [From Aricept] Allergy Intermediate Gastrointestinal Verified 09/04/18 16:47 Upset naproxen [From Aleve] Allergy Intermediate Gastrointestinal Verified 09/04/18 16 :47 Upset rivastigmine [From Exelon] Allergy Intermediate Dizziness Verified 09/04/18 16:47 simvastatin AdvReac Intermediate Gastrointestinal Verified 09/04/18 16:47 Upset shellfish derived AdvReac Unknown Unknown Verified 09/04/18 16:47 Home Medications Home Medications Medication Instructions Recorded Confirmed Type clopidogrel [Plavix] 75 mg PO DAILY 07/27/18 09/04/18 History alendronate 70 mg PO WK 08/15/18 09/04/18 History escitalopram oxalate 10 mg PO DAILY 08/15/18 09/04/18 History memantine 28 mg PO DAILY 08/15/18 09/04/18 History donepezil 5 mg PO QAM 30 Days #30 tab 08/21/18 09/04/18 Rx acetaminophen [Tylenol] 650 mg PO Q6H PRN MDD MAX 10 09/04/18 09/04/18 History TABS/24 HOURS. lidocaine [Lidoderm] 1 patch TOPICAL DAILY 09/04/18 09/04/18 History potassium chloride 10 meq PO BIDM 09/04/18 09/04/18 History prednisone 20 mg PO DAILY 09/04/18 09/04/18 History Past Med/Surg History Medical History Dementia Pulmonary hypertension Acute respiratory failure Hypokalemia Multinodular goiter (nontoxic) Anxiety (Acute) High cholesterol (Acute) Pulmonary nodule (Acute) No pertinent family history Surgical History History of appendectomy (Acute) History of tonsillectomy and adenoidectomy (Acute) History of total abdominal hysterectomy (Acute) Family History Other No pertinent family history Social History Preferred Language: Andorran Communication Ability: Impaired Visual Impairment: No Limitations Hearing Ability: Normal Beliefs That Will Affect Care: Jain Jain Beliefs: Islam marital status: / Current Living Situation: Family Current Living Situation Comment: at [facility] living apt with son Feels Safe at Home: Yes Smoking Status: Never smoker Second Hand Exposure: No Hx Alcohol Use: No Hx Substance Use: No Review of Systems Review of Systems: Pertinent positives and negatives reviewed in HPI--all others negative Physical Exam Constitutional: WD/WN, vitals as above Eyes: normal visual gordon by confrontation and + anicteric sclerae Neck: normal visual inspection and trachea midline Respiratory: normal respiratory effort, lungs clear to auscultation Cardiovascular: Rate/Rhythm: regular rate and regular rhythm Gastrointestinal (Abdomen): Inspection/Auscultation: abdomen not distended Percussion/Palpation: abdomen soft; abdomen nontender Musculoskeletal: Head/Neck/Chest: normocephalic and head atraumatic negative for edema, peripheral pulses intact Skin: no rashes, warm and dry Neurologic: awake; not confused Speech / Cognition: normal speech Psychiatric: A+Ox3, euthymic affect Results & Data Diagnostic Findings CTAP: 1. A 14.5 x 9.8 cm heterogeneous lobular mass within the left upper quadrant. This invades into the majority of the spleen, posterior wall of the stomach, pancreatic tail, and the left hemidiaphragm. This also results in multiple areas of vascular invasion as described above. This could represent a primary pancreatic or splenic malignancy or possibly a retroperitoneal sarcoma. 2. Mild nodular enhancement within the basilar pleural surfaces with small to moderate bilateral pleural effusions. This is highly suspicious for metastatic involvement. 3. Multiple irregular nodules seen within the lung bases concerning for metastatic disease. Code Status & VTE Plan Code Status Full code, son is present and agrees with this VTE Prophylaxis Plan VTE Prophylaxis will be ordered: Yes (1) Abdominal pain Abdominal location: unspecified location Qualified Code(s): R10.9 - Unspecified abdominal pain
[2018-09-14 19:07] LABS: Basophils # (auto) 0.01 K/uL (0-0.2); Basophils % (auto) 0.1 %; Eosinophils # (auto) 0.02 K/uL (0-0.5); Eosinophils % (auto) 0.2 %; Hematocrit (blood only) 39.5 % (37-47); Hemoglobin 12.7 g/dL (12.0-16.0); Immature Granulocytes # (auto) 0.04 K/uL (0.00-0.02); Immature Granulocytes % (auto) 0.3 %; Lymphocytes # (auto) 0.82 K/uL (1.2-3.4); Lymphocytes % (auto) 6.9 %; Mean Corpuscular Hgb Conc 32.2 g/dL (32-36); Mean Corpuscular Volume 89.4 fL (80-100); Mean Platelet Volume 11.3 fL (7.4-10.4); Monocytes # (auto) 0.47 K/uL (0.11-0.59); Neutrophils # (auto) 10.53 K/uL (1.4-6.5); Neutrophils % (auto) 88.5 %; Platelet Count 237 K/uL (130-400); RDW Coefficient of Variation 17.5 % (11.5-14.5); Red Blood Count 4.42 M/uL (4.2-5.4); White Blood Count 11.89 K/uL (4.8-10.8)
[2018-09-14 19:36] LABS: BUN Creatinine Ratio 21.5 (10-20); Blood Urea Nitrogen 26 mg/dl (7-18); Calcium 13.3 mg/dl (8.5-10.1); Carbon Dioxide 30 mmol/L (21-32); Chloride 101 mmol/L (98-107); Est GFR (African American) 49.8; Glucose 114 mg/dl (70-99); Phosphorus 4.1 mg/dl (2.5-4.9); Sodium 138 mmol/L (136-145)
[2018-09-14] MEDS: D5W AND 1/2NSS 1,000 ML IV SCH (19:48)
[2018-09-14] MEDS ORDERED: ACETAMINOPHEN 325 MG TAB PO PRN (19:54)
[2018-09-14 20:50] LABS: Potassium 4.4 mmol/L (3.5-5.1)
[2018-09-14 20:51] LABS: Magnesium 2.1 mg/dl (1.8-2.4)
[2018-09-15] MEDS: D5W AND 1/2NSS 1,000 ML IV SCH ×2 (06:26→19:43)
[2018-09-15] MEDS: DONEPEZIL HCL 5 MG TAB PO SCH (08:53)
[2018-09-15] MEDS: CLOPIDOGREL BISULFATE 75 MG TAB PO SCH (08:54)
[2018-09-15] MEDS: ESCITALOPRAM OXALATE 10 MG TAB PO SCH (08:54)
[2018-09-15] MEDS: POTASSIUM CHLORIDE 10 MEQ TABCR PO SCH ×2 (08:54→17:35)
[2018-09-15] MEDS: predniSONE 20 MG TAB PO SCH (08:54)
[2018-09-15] MEDS: LIDOCAINE 5% 1 PATCH TD SCH (08:58)
--- NOTE | 2018-09-15 09:05 | Consultation Report ---
DATE OF CONSULTATION: 09/15/2018 MEDICAL ONCOLOGY CONSULTATION REASON FOR CONSULTATION: Left upper quadrant mass. HISTORY OF PRESENT ILLNESS: Lynnette is a 78-year-old female patient who was admitted to [facility] on September 14 with the diagnosis of failure to thrive and intolerance to p.o. intake. The patient herself was not the best of informants. Upon questioning, her common answer was "I don't remember." According to the admitting physician's clinical note, the patient has been in steady decline over the past several weeks. Upon taking in a food, she experiences left upper quadrant pain that is described as sharp and stabbing. There is no associated nausea or vomiting. Apparently, her baseline appetite is not tremendous. Family members have apparently tried supplements including Boost over the past couple of weeks, but the supplements also exacerbate her pain. Upon admission, a CT scan of the abdomen and pelvis reveals a relatively large mass 14.5 x 9.8 cm in the left upper quadrant invading the left hemidiaphragm, spleen, pancreatic tail and posterior wall of the proximal stomach. Mild mass effect is also noted. Biopsy has yet to be carried out and thus diagnosis is elusive at present. The interpreting radiologist suggests perhaps a primary GI malignancy or retroperitoneal sarcoma. I would also add non-Hodgkin's lymphoma in that differential diagnosis. Again, the patient herself is not the best of historians and I have been asked to render an opinion regarding treatment moving forward. It would appear this lady does live independently. She clearly suffers from dementia and her ability to recall is questionable. Lynnette is oriented to her name, place and time. PAST MEDICAL HISTORY: Dementia, pulmonary hypertension, hypokalemia, multinodular goiter, anxiety, hyperlipidemia, pulmonary nodule. PAST SURGICAL HISTORY: Includes appendectomy, tonsillectomy, adenoidectomy and total abdominal hysterectomy. MEDICATIONS: Prior to admission include clopidogrel 75 mg p.o. daily, alendronate 70 mg p.o. weekly, escitalopram 10 mg p.o. daily, memantine 28 mg p.o. daily, donepezil 5 mg p.o. daily, Tylenol 650 mg q. 6 p.r.n., lidocaine patch topical daily, potassium chloride 10 mEq p.o. b.i.d., prednisone 20 mg p.o. daily. ALLERGIES: DONEPEZIL, NAPROSYN, RIVASTIGMINE, SIMVASTATIN, SHELLFISH. SOCIAL HISTORY: The patient is a , resides at [facility] living with son. She is not a smoker, not a drinker, non-illicit drug user. FAMILY HISTORY: No pertinent family history. REVIEW OF SYSTEMS: Really unobtainable. She is very vague upon questioning and certainly not reliable. PHYSICAL EXAMINATION: GENERAL: She is a cachectic appearing 78-year-old female patient, awake, alert, in no acute distress. VITAL SIGNS: Temperature 36.5, pulse 70, respiratory rate 18, blood pressure 100/59. SKIN: Without rash or lesion. Turgor is poor. HEENT: Head is atraumatic, normocephalic. Eyes: PERRLA, EOMI. Nares are patent without rhinorrhea or discharge. Throat clear. Tongue midline. No buccal lesions or ulcerations. She has upper and lower dentures. NECK: Supple. Trachea midline. No JVD appreciated. HEART: Regular rate and rhythm. No clicks, rubs or murmurs. LUNGS: Clear to auscultation bilaterally. ABDOMEN: Relatively soft. I could not appreciate a mass despite how thin she is. No rigidity or guarding. EXTREMITIES: No clubbing, cyanosis or edema. MUSCULOSKELETAL: Strength and pulses are equal in all 4 quadrants. NEUROLOGIC: She is awake and alert. Cranial nerves are intact. LABORATORY DATA: WBC count 11,890, hemoglobin 12.7, platelet count 237,000. Sodium 138, potassium 4.4, chloride 101, carbon dioxide 30, creatinine 1.20, BUN 26. IMPRESSION: 1. Left upper quadrant abdominal mass, diagnosis unknown. 2. Associated postprandial abdominal pain. 3. History of sarcoidosis. 4. Dementia. 5. Hypokalemia. 6. Transient ischemic attack by history. PLAN: I have been asked to render an opinion regarding Ms. Garcia's clinical situation. Clearly, she suffers from a very large neoplastic or lymphoproliferative process and a biopsy is needed. I cannot render an opinion one way or another until diagnosis is confirmed. I would then question her overall performance status and would have to carefully review options for salvage treatment moving forward. Thus, recommend requesting radiology obtain an image-guided core biopsy and will be more than happy to reconvene with Lynnette once diagnosis is established. I agree the early satiety and pain are related to the external compression from this process. Perhaps consider enteral feeding options, may need a jejunostomy, moving forward as PEG in close proximity to the tumor may not be prudent. Continue medical management otherwise as written. Please reconsult either Dr. Funes or myself when the diagnosis is confirmed. Thank you very much for allowing me to participate in her care. If you have any questions or concerns, feel free to contact me at any time. ROSI
--- NOTE | 2018-09-15 14:40 | Ultrasound Report ---
ULTRASOUND-GUIDED FINE-NEEDLE ASPIRATION BIOPSY, AN ULTRASOUND-GUIDED 18-GAUGE CORE BIOPSY OF A RETRO PERITONEAL MASS. CLINICAL HISTORY: Abdominal mass COMPARISON STUDY: CT scan dated 09/14/2018 FINDINGS: A timeout was performed. The risks the procedure were explained to the patient and informed consent was obtained. Under ultrasound guidance, the patient's large retroperitoneal mass was initially sampled with a 22-g auge Aristeo needle. Initial pathologic review revealed abundant cellular material. The pathologist requested a core biopsy sample. Under ultrasound guidance, an 18-gauge 2 cm throw core biopsy was obtained from the patient's mass. The patient tolerated the procedure well and was sent to the floor for observation. IMPRESSION: 1. Successful ultrasound-guided fine-needle aspiration biopsy, an ultrasound-guided 18-gauge core bio psy of a large retroperitoneal mass. Final pathology is pending at this time. Electronically signed by: Cr Mccabe M.D. 09/15/2018 2:39 PM
--- NOTE | 2018-09-15 23:13 | Hospitalist Progress Note ---
Date of Service September 15, 2018 Assessment & Plan (1) Abdominal pain: CTAP as noted with mets to chest Likely related to mass Intolerance of PO leading to FTT Heme/onc consult: appreciate input. Patient will need biopsy before porceeding. Consulted radiology, patient is getting an ultrasound guided biopsy. Patient is currently tolerating full liquid diet will continue. Will monitor. Full liquid diet (2) Sarcoidosis: Continue home steroids and O2 (3) Dementia: continue home meds (4) Hypokalemia: resolved cristal monitor. (5) TIA (transient ischemic attack): Continue plavix (6) Depression with anxiety: continue home meds (7) Hypercalcemia: Patient being treated with IVF. will recheck. (8) Hypomagnesemia: Noted on prior admission, resolved. (9) DVT prophylaxis: SCDs for now may consider lovenox. But patient is going to get n ultrasound guided biopsy. Spent 35 minutes in management of patient. Subjective Pleasant 78 yo female reports no new complaints today. Her son is at bedside, and reports that she has not janet eating well and has been more fatigued as of late. However while she has janet in the hospital, she has been eating more. And has not been throwing up. Son and patient were updated on Dr. Santos's visit. Review of Systems Review of Systems: Unobtainable due to mental health condition Physical Exam Physical Exam: Constitutional: WD/WN, vitals as above Eyes: normal visual gordon by confrontation and + anicteric sclerae Neck: normal visual inspection and trachea midline Respiratory: normal respiratory effort, lungs clear to auscultation Cardiovascular: Rate/Rhythm: regular rate and regular rhythm Gastrointestinal (Abdomen): Inspection/Auscultation: abdomen not distended Percussion/Palpation: abdomen soft; abdomen nontender Musculoskeletal: Head/Neck/Chest: normocephalic and head atraumatic negative for edema, peripheral pulses intact Skin: no rashes, warm and dry Neurologic: awake; not confused Speech / Cognition: normal speech Psychiatric: A+Ox3, euthymic affect Results & Data Vital Signs (Past 12 Hours) Vital Signs Temp Pulse Resp BP Pulse Ox 09/15/18 15:34 37.0 C 72 16 91/56 L 97 (1) Abdominal pain Abdominal location: unspecified location Qualified Code(s): R10.9 - Unspecified abdominal pain
[2018-09-16] MEDS ORDERED: SODIUM CHLORIDE 0.65% NA SOLN 45 ML (OCEAN) ONE (02:27)
[2018-09-16] MEDS ORDERED: OXYMETAZOLINE 0.05% 30 ML BTL NAE PRN (04:04)
[2018-09-16] MEDS ORDERED: OXYMETAZOLINE 0.05% 30 ML BTL ONE (04:04)
--- NOTE | 2018-09-16 04:34 | Progress Note ---
Date of Service September 16, 2018 Subjective RN called Pt had fallen off bed and landed on face and having a nose bleed Pt evaluated - see exam below Nose clip applied and nurse instructed to spray nostril with afrin spray to stop bleeding - stopped bleeding Given hematoma and pt being on plavix CT head ordered CT negative for acute IC hemorrhage but noted nasal bone fx Consider ENT consult EXAM: applying nose pressure, cooperative, frail, pleasant HEENT: L sided forhead hematoma, PERRL, mild bleeding from nose and bruise on nasal bridge CV: RRR, no m/r/g PULM: CTAB equal breath sounds bilaterally ABDOMEN: +BS, non-tender to palpation in all quadrants, non-distended Neuro: alert and oriented, CN 2-12 intact, bilateral upper and lower extremity strength 5/5, intact sensation bilateral upper and lower extremities LE: no calf TTP, no LE edema Results & Data Vital Signs (Past 12 Hours) Vital Signs Temp Pulse Resp BP Pulse Ox 09/16/18 02:34 74 20 148/78 H 97 09/16/18 00:00 37.0 C 74 19 97/82 L 95 Resident Activity Tracking Resident Involvement: Resident Care Provided Care Provided: Adult Hospital Medicine
--- NOTE | 2018-09-16 05:53 | CT Scan Report ---
CT head/brain wo con CT DOSE: 537.48 mGy.cm HISTORY: Trauma. Pain. fall w/t head trauma, nose bleed, on plavix TECHNIQUE: Multiaxial CT images of the head were performed without the use of intravenous contrast. A dose lowering technique was utilized adhering to the principles of ALARA. Comparison: 08/15/2018 Findings: Fracture of the nasal bones. Hypertrophic and edematous change of the anterior nasal turbin ates. The calvarium and skull base are intact. The ventricles and sulci are within normal limits. The re is no mass, hematoma, midline shift, or acute infarct. Age-related atrophy and chronic small vesse l change. Impression: No acute intracranial abnormality. No change from the prior study. Fracture tip nasal bones.. The above report was generated using voice recognition software. It may contain grammatical, syntax or spelling errors. Electronically signed by: Dangelo Rosado M.D. 09/16/2018 5:52 AM
[2018-09-16] MEDS: D5W AND 1/2NSS 1,000 ML IV SCH ×2 (06:24→20:00)
[2018-09-16] MEDS: POTASSIUM CHLORIDE 10 MEQ TABCR PO SCH ×2 (07:50→18:06)
[2018-09-16] MEDS: DONEPEZIL HCL 5 MG TAB PO SCH (07:50)
[2018-09-16] MEDS: ESCITALOPRAM OXALATE 10 MG TAB PO SCH (07:50)
[2018-09-16] MEDS: CLOPIDOGREL BISULFATE 75 MG TAB PO SCH (07:50)
[2018-09-16] MEDS: predniSONE 20 MG TAB PO SCH (07:51)
[2018-09-16] MEDS: MEMANTINE PO SCH (07:51)
[2018-09-16] MEDS: LIDOCAINE 5% 1 PATCH TD SCH (07:53)
[2018-09-16 09:49] LABS: Calcium 10.7 mg/dl (8.5-10.1); Creatinine Clr Calc Pharmacy 28.8 ml/min; Est GFR (African American) 75.5; Est GFR (Non-African American) 65.2; Potassium 3.9 mmol/L (3.5-5.1)
--- NOTE | 2018-09-16 23:57 | Hospitalist Progress Note ---
Date of Service September 16, 2018 Assessment & Plan (1) Abdominal pain: CTAP as noted with mets to chest Likely related to mass Intolerance of PO leading to FTT Heme/onc consult: appreciate input. Patient will need biopsy before proceeding. Consulted radiology, patient is getting an ultrasound guided biopsy. This was done on 09/15. Patient is currently tolerating full liquid diet will continue. Will monitor. Full liquid diet (2) Sarcoidosis: Continue home steroids and O2 (3) Dementia: continue home meds (4) Hypokalemia: resolved cristal monitor. (5) TIA (transient ischemic attack): Continue plavix (6) Depression with anxiety: continue home meds (7) Hypercalcemia: Patient being treated with IVF. will recheck. Levels have improved. but remains elevated. (8) Hypomagnesemia: Noted on prior admission, resolved. Fall Cristal place patient in a low rise pad with padding. Discussed with oral maxilofacial, patient will be seen on Tuesday in house. If discharged before then, will need outpatient followup. Patient does not need to be seen urgently. (9) DVT prophylaxis: SCDs for now Spent 25 minutes in management of patient. Subjective Patient overnight had a fall which caused a fracture of her nose. Currently patient reports feeling well. She does not remeber the fall. She reports feeling well and denies any new complaints at this time. Review of Systems Review of Systems: All systems reviewed & are unremarkable except as noted in HPI & below Physical Exam Physical Exam: Constitutional: WD/WN, vitals as above Eyes: normal visual gordon by confrontation and + anicteric sclerae Neck: normal visual inspection and trachea midline Respiratory: normal respiratory effort, lungs clear to auscultation Cardiovascular: Rate/Rhythm: regular rate and regular rhythm Gastrointestinal (Abdomen): Inspection/Auscultation: abdomen not distended Percussion/Palpation: abdomen soft; abdomen nontender Musculoskeletal: Head/Neck/Chest: normocephalic and head atraumatic negative for edema, peripheral pulses intact Skin: no rashes, warm and dry Neurologic: awake; still not confused Speech / Cognition: normal speech Psychiatric: A+Ox3, euthymic affect Results & Data Vital Signs (Past 12 Hours) Vital Signs Temp Pulse Resp BP Pulse Ox 09/16/18 23:16 36.9 C 78 18 131/77 100 05/25/19 16:00 36.7 C 84 18 101/65 95 (1) Abdominal pain Abdominal location: unspecified location Qualified Code(s): R10.9 - Unspecified abdominal pain
[2018-09-17] MEDS: DONEPEZIL HCL 5 MG TAB PO SCH (07:12)
[2018-09-17] MEDS: CLOPIDOGREL BISULFATE 75 MG TAB PO SCH (07:12)
[2018-09-17] MEDS: ESCITALOPRAM OXALATE 10 MG TAB PO SCH (07:14)
[2018-09-17] MEDS: ACETAMINOPHEN 325 MG TAB PO PRN (07:14)
[2018-09-17] MEDS: LIDOCAINE 5% 1 PATCH TD SCH (07:15)
[2018-09-17] MEDS: POTASSIUM CHLORIDE 10 MEQ TABCR PO SCH ×2 (07:15→17:26)
[2018-09-17] MEDS: predniSONE 20 MG TAB PO SCH (07:15)
[2018-09-17] MEDS: D5W AND 1/2NSS 1,000 ML IV SCH ×2 (07:15→19:37)
[2018-09-17] MEDS: MEMANTINE PO SCH (07:16)
--- NOTE | 2018-09-17 11:41 | Progress Note ---
DATE: 09/17/2018 MEDICAL ONCOLOGY PROGRESS NOTE DIAGNOSES: 1. Left upper quadrant abdominal pain/mass. 2. Sarcoidosis. 3. Dementia. 4. Hypokalemia. 5. Transient ischemic attack. 6. Depression with anxiety. 7. Hypercalcemia. SUBJECTIVE: Lynnette was seen and examined at bedside today. She seems to be quite comfortable, answers questions readily, but clearly has gaps in her memory. The patient's niece was in today. Expressed my concern with Lynnette's care moving forward. Await biopsy results to determine how best to treat her disease. I believe they are looking into potential placement for Lynnette as she lives independently. My fear, aggressively treating her may result in morbidities and potentially frequent hospitalizations. Apparently, her son has a power of commercial real estate attorney would definitely engage in discussion with him regarding her diagnosis, prognosis and treatment options. Nursing reports no overnight difficulties otherwise. OBJECTIVE: GENERAL: A very pleasant, cachectic appearing 78-year-old female patient, in no acute distress. VITAL SIGNS: Temperature 37, pulse 75, respiratory rate 18, blood pressure 118/69. SKIN: Without rash or lesion. HEENT: Oral mucosa without erythema or ulceration. HEART: Regular rate and rhythm. LUNGS: Clear to auscultation bilaterally. ABDOMEN: Soft, nontender, nondistended. EXTREMITIES: No clubbing, cyanosis or edema. NEUROLOGIC: Other than her memory, appears to be intact. IMPRESSION: 1. Left upper quadrant abdominal mass. 2. Sarcoidosis by history. 3. Early onset dementia. 4. Hypokalemia. 5. History of transient ischemic attack. 6. Depression with associated anxiety. PLAN: Ultrasound-guided biopsy was performed with pathology pending. Again, cannot make formal recommendations and would definitely fly to sit down with the patient's son (POA) before any decisions regarding treatment occur. I agree with the idea of placement in her case. Conceivably, she could be transported from the halfway for treatment at [facility]. Considering her comorbid issues, whatever chemotherapy is decided would most likely modify her dose and start slow and proceed with caution. Agree with medical management otherwise. Thank you very much for allowing me to participate in her care. We will officially sign off and anticipate seeing her as outpatient in the next week or two. ROSI
--- NOTE | 2018-09-17 22:35 | Hospitalist Progress Note ---
Date of Service September 17, 2018 Assessment & Plan (1) Abdominal pain: CTAP as noted with mets to chest Likely related to mass Intolerance of PO leading to FTT Heme/onc consult: appreciate input. Patient will need biopsy before proceeding. Consulted radiology, patient is getting an ultrasound guided biopsy. This was done on 09/15. Patient is currently tolerating full liquid diet will continue. Will monitor. Full liquid diet/ will advance to regular diet in AM. (soft bite sized). If patient tolerates this, may consider just regular diet. (2) Sarcoidosis: Continue home steroids and O2 (3) Dementia: continue home meds (4) Hypokalemia: resolved cristal monitor. (5) TIA (transient ischemic attack): Continue plavix (6) Depression with anxiety: continue home meds (7) Hypercalcemia: Patient being treated with IVF. will recheck in AM. Calcium decreased to 10 from 13. Levels have improved. but remains elevated. will continue IVF. (8) Hypomagnesemia: Noted on prior admission, resolved. Fall Will place patient in a low rise pad with padding. Discussed with oral maxilofacial, patient will be seen on Tuesday in house. If discharged before then, will need outpatient followup. Patient does not need to be seen urgently. (9) DVT prophylaxis: SCDs for now Spent 25 minutes in management of patient. Awaiting placement. Subjective Son is at bedside and is updated. No new complaints. Swelling of face has been going down. Patient is tolerating her diet and wants diet advanced. Son reports that she did not eat while at home. Review of Systems Review of Systems: All systems reviewed & are unremarkable except as noted in HPI & below Physical Exam Physical Exam: Constitutional: WD/WN, vitals as above Eyes: normal visual gordon by confrontation and + anicteric sclerae, ecchymosis noted around both eyes. Neck: normal visual inspection and trachea midline Respiratory: normal respiratory effort, lungs clear to auscultation Cardiovascular: Rate/Rhythm: regular rate and regular rhythm Gastrointestinal (Abdomen): Inspection/Auscultation: abdomen not distended Percussion/Palpation: abdomen soft; abdomen nontender Musculoskeletal: Head/Neck/Chest: normocephalic and head atraumatic negative for edema, peripheral pulses intact Skin: no rashes, warm and dry Neurologic: awake; still not confused Speech / Cognition: normal speech Psychiatric: A+Ox3, euthymic affect Results & Data Vital Signs (Past 12 Hours) Vital Signs Temp Pulse Resp BP Pulse Ox 09/17/18 22:28 37.1 C 67 20 144/81 H 94 09/17/18 14:56 36.7 C 76 20 104/66 94 09/17/18 11:50 95 (1) Abdominal pain Abdominal location: unspecified location Qualified Code(s): R10.9 - Unspecified abdominal pain
[2018-09-18 08:16] LABS: Calcium 9.8 mg/dl (8.5-10.1); Creatinine Clr Calc Pharmacy 30.6 ml/min; Est GFR (African American) 81.3; Est GFR (Non-African American) 70.1; Potassium 3.9 mmol/L (3.5-5.1)
[2018-09-18] MEDS: MEMANTINE PO SCH (08:23)
[2018-09-18] MEDS: CLOPIDOGREL BISULFATE 75 MG TAB PO SCH (08:25)
[2018-09-18] MEDS: D5W AND 1/2NSS 1,000 ML IV SCH ×2 (08:25→20:22)
[2018-09-18] MEDS: predniSONE 20 MG TAB PO SCH (08:25)
[2018-09-18] MEDS: ESCITALOPRAM OXALATE 10 MG TAB PO SCH (08:25)
[2018-09-18] MEDS: DONEPEZIL HCL 5 MG TAB PO SCH (08:25)
[2018-09-18] MEDS: POTASSIUM CHLORIDE 10 MEQ TABCR PO SCH ×2 (08:26→17:44)
[2018-09-18] MEDS: LIDOCAINE 5% 1 PATCH TD SCH (08:27)
--- NOTE | 2018-09-18 15:54 | Hospitalist Progress Note ---
Date of Service September 18, 2018 Assessment & Plan (1) Abdominal pain: CTAP as noted with mets to chest Likely related to mass Heme/onc consult: appreciate input. pending results to FNA on 09/15. advance to regular (soft bite sized). (2) Sarcoidosis: Continue home steroids and O2 (3) Dementia: continue home meds (4) Hypokalemia: resolved cristal monitor. (5) TIA (transient ischemic attack): Continue plavix (6) Depression with anxiety: continue home meds (7) Hypercalcemia: Patient being treated with IVF. Calcium decreased (8) Hypomagnesemia: resolved. Fall Will place patient in a low rise pad with padding. Discussed with oral maxilofacial, only has fracture to tip of nasal bones patient will be seen on Tuesday in house. If discharged before then, will need outpatient followup. Patient does not need to be seen urgently. (9) DVT prophylaxis: SCDs for now Subjective pt is pleasantly confused she has no pain at biopsy site, final pathology is not back Review of Systems Review of Systems: Unobtainable due to cognitive status She cannot answer day of the week month the year etc. ROS: Thin and chronically ill No double vision blurry vision No problems with speech or swallowing No palpitations, chest pain or pressure No Wheezing or breathing issues No abdominal pain nausea vomiting diarrhea changes in appetite or weight No burning urine urine frequency or changes in color No focal joint pain or muscle pain No skin rashes or oral lesions No unusual bruising or bleeding No focused back pain or numbness Physical Exam Physical Exam: The patient thin and chronically ill Vital signs as documented. Head exam is unremarkable. normocephalic, atraumatic Neck is without jugular venous distension, thyromegaly, or lymphademopathy Lungs are clear to auscultation and percussion. Cardiac exam reveals Rhythm is regular. First and second heart sounds normal. Abdominal exam reveals normal bowel sounds, no masses, no organomegaly Extremities are nonedematous and both pedal pulses are present Neurologic exam is A&Ox1, no focal deficits, he seems to have fairly significant dementia Psychologically seems neither anxious or depressed Skin is warm / Dry Results & Data Vital Signs (Past 12 Hours) Vital Signs Temp Pulse Resp BP Pulse Ox 09/18/18 07:24 36.6 C 78 18 127/74 95 (1) Abdominal pain Abdominal location: unspecified location Qualified Code(s): R10.9 - Unspecified abdominal pain
--- NOTE | 2018-09-19 08:18 | Hospitalist Progress Note ---
Date of Service September 19, 2018 Assessment & Plan (1) Abdominal pain: CTAP as noted with mets to chest Likely related to mass Heme/onc consult: appreciate input. Continue to wait on pending results to FNA on 09/15. advance to regular (soft bite sized). We will have palliative care consult (2) Sarcoidosis: Continue home steroids and O2 (3) Dementia: continue home meds (4) Hypokalemia: resolved cristal monitor. (5) TIA (transient ischemic attack): Continue plavix (6) Depression with anxiety: continue home meds (7) Hypercalcemia: Patient being treated with IVF. Calcium decreased (8) Hypomagnesemia: resolved. Fall Will place patient in a low rise pad with padding. Discussed with oral maxilofacial, only has fracture to tip of nasal bones patient will be seen on Tuesday in house. If discharged before then, will need outpatient followup. Patient does not need to be seen urgently. (9) DVT prophylaxis: SCDs for now Subjective pt is pleasantly confused, her niece is at the bedside and updated. the pt was informed of my concerns with her abdominal mass Review of Systems Review of Systems: ROS: Very thin and frail No double vision blurry vision No problems with speech or swallowing No palpitations, chest pain or pressure No Wheezing or breathing issues No abdominal pain nausea vomiting No burning urine urine frequency or changes in color No focal joint pain or muscle pain No skin rashes or oral lesions No unusual bruising or bleeding No focused back pain or numbness or loss of strength No new changes in memory or confusion Physical Exam Physical Exam: The patient appeared well nourished and normally developed. Vital signs as documented. Head exam is unremarkable. normocephalic, atraumatic Neck is without jugular venous distension, thyromegaly, or lymphademopathy Lungs are clear to auscultation and percussion. Cardiac exam reveals Rhythm is regular. First and second heart sounds normal. Abdominal exam reveals only minor discomfort, normal bowel sounds, no palpable masses, Extremities are nonedematous and both pedal pulses are present Neurologic exam is A&Ox3, no focal deficits, strength is equal bilateral Psychologically seems neither anxious or depressed Skin is warm Dry without bruises or lesions Results & Data Vital Signs (Past 12 Hours) Vital Signs Temp Pulse Resp BP Pulse Ox 09/19/18 07:37 37.3 C 93 H 18 120/71 97 09/18/18 23:05 37.1 C 78 18 129/76 96 (1) Abdominal pain Abdominal location: unspecified location Qualified Code(s): R10.9 - Unspecified abdominal pain
[2018-09-19] MEDS: DONEPEZIL HCL 5 MG TAB PO SCH (08:54)
[2018-09-19] MEDS: POTASSIUM CHLORIDE 10 MEQ TABCR PO SCH ×2 (08:54→17:13)
[2018-09-19] MEDS: CLOPIDOGREL BISULFATE 75 MG TAB PO SCH (08:54)
[2018-09-19] MEDS: ESCITALOPRAM OXALATE 10 MG TAB PO SCH (08:54)
[2018-09-19] MEDS: predniSONE 20 MG TAB PO SCH (08:55)
[2018-09-19] MEDS: MEMANTINE PO SCH (08:55)
[2018-09-19] MEDS: LIDOCAINE 5% 1 PATCH TD SCH (08:57)
[2018-09-19] MEDS: D5W AND 1/2NSS 1,000 ML IV SCH ×2 (08:58→19:28)
[2018-09-20 06:21] LABS: Hematocrit (blood only) 26.6 % (37-47); Hemoglobin 9.2 g/dL (12.0-16.0); Mean Corpuscular Hgb Conc 34.6 g/dL (32-36); Mean Corpuscular Volume 86.4 fL (80-100); Mean Platelet Volume 10.6 fL (7.4-10.4); Platelet Count 141 K/uL (130-400); RDW Coefficient of Variation 17.3 % (11.5-14.5); RDW Standard Deviation 54.6 fL (36.4-46.3); Red Blood Count 3.08 M/uL (4.2-5.4); White Blood Count 9.95 K/uL (4.8-10.8)
[2018-09-20 06:54] LABS: BUN Creatinine Ratio 10.8 (10-20); Calcium 8.4 mg/dl (8.5-10.1); Creatinine Clr Calc Pharmacy 30.2 ml/min; Est GFR (African American) 80.1; Est GFR (Non-African American) 69.1; Potassium 3.4 mmol/L (3.5-5.1)
[2018-09-20] MEDS: D5W AND 1/2NSS 1,000 ML IV SCH ×2 (08:10→20:54)
[2018-09-20] MEDS: DONEPEZIL HCL 5 MG TAB PO SCH (08:12)
[2018-09-20] MEDS: POTASSIUM CHLORIDE 10 MEQ TABCR PO SCH ×2 (08:12→16:38)
[2018-09-20] MEDS: ENOXAPARIN INJ 40 MG/0.4 ML SYR SQ SCH (08:12)
[2018-09-20] MEDS: ESCITALOPRAM OXALATE 10 MG TAB PO SCH (08:12)
[2018-09-20] MEDS: MEMANTINE PO SCH (08:13)
[2018-09-20] MEDS: predniSONE 20 MG TAB PO SCH (08:14)
[2018-09-20] MEDS: CLOPIDOGREL BISULFATE 75 MG TAB PO SCH (08:14)
[2018-09-20] MEDS: LIDOCAINE 5% 1 PATCH TD SCH (08:17)
--- NOTE | 2018-09-20 08:48 | Surgery Consultation ---
Date of Consultation I evaluated Mrs. Garcia`s CT scan as well as doing a clinical exam. She has a nasal bone fracture from a fall out of bed last tuesday. The Ct scan does show some minor fractures and slight deveation to the right. There are a few mimimal displaced cracks of the lateral nasal bones. Overall the CT and clinical exam shows the fracture which results in a very slight cosmetic change to her nose. Mrs Garcia does not seem to have any clinical symptoms such as congestion or difficulty breathing. Impression: slight nasal bone fraction with some displacement, No clinical symptoms that require treatment, resolving ecchymosis of face. Plan: No treatment is indicated, the slight fracture will heal without any projects manager effects except for a slight displacement to the right which in my opinion is not significant. A nasal reduction is not needed or indicated given the slight displacement and `s current medical presentation. Thank You. Waldemar Carlson DMD History of Present Illness Attending Physician: Chico Chavez MD Allergies Allergy/AdvReac Type Severity Reaction Status Date / Time donepezil [From Aricept] Allergy Intermediate Gastrointestinal Verified 09/04/18 16:47 Upset naproxen [From Aleve] Allergy Intermediate Gastrointestinal Verified 09/04/18 16:47 Upset rivastigmine [From Exelon] Allergy Intermediate Dizziness Verified 09/04/18 16:47 simvastatin AdvReac Intermediate Gastrointestinal Verified 09/04/18 16:47 Upset shellfish derived AdvReac Unknown Unknown Verified 09/04/18 16:47 Home Medications Home Medications Medication Instructions Recorded Confirmed Type clopidogrel [Plavix] 75 mg PO DAILY 07/27/18 09/04/18 History alendronate 70 mg PO WK 08/15/18 09/04/18 History escitalopram oxalate 10 mg PO DAILY 08/15/18 09/04/18 History memantine 28 mg PO DAILY 08/15/18 09/04/18 History acetaminophen [Tylenol] 650 mg PO Q6H PRN MDD MAX 10 09/04/18 09/04/18 History TABS/24 HOURS. lidocaine [Lidoderm] 1 patch TOPICAL DAILY 09/04/18 09/04/18 History potassium chloride 10 meq PO BIDM 09/04/18 09/04/18 History prednisone 20 mg PO DAILY 09/04/18 09/04/18 History Patient History Medical History Dementia Pulmonary hypertension Acute respiratory failure Hypokalemia Multinodular goiter (nontoxic) Anxiety (Acute) High cholesterol (Acute) Pulmonary nodule (Acute) No pertinent family history Surgical History History of appendectomy (Acute) History of tonsillectomy and adenoidectomy (Acute) History of total abdominal hysterectomy (Acute) Family History Other No pertinent family history Social History Preferred Language: Estonian Communication Ability: Effective Visual Impairment: No Limitations Hearing Ability: Normal Beliefs That Will Affect Care: Jain Jain Beliefs: Quaker marital status: / Current Living Situation: Alone Current Living Situation Comment: at [facility] living apartments Feels Safe at Home: Yes Smoking Status: Never smoker Second Hand Exposure: No Hx Alcohol Use: No Hx Substance Use: No Results & Data Vital Signs (Past 12 Hours) Vital Signs Temp Pulse Resp BP Pulse Ox 09/20/18 07:31 36.8 C 81 16 134/79 97 09/19/18 23:05 37.4 C 86 18 125/80 96 09/19/18 23:03 37.1 C 83 119/79 91
--- NOTE | 2018-09-20 15:15 | Hospitalist Progress Note ---
Date of Service September 20, 2018 Assessment & Plan (1) Abdominal pain: CTAP as noted with mets to chest Likely related to mass Heme/onc consult: appreciate input. Pathology from FNA on 524 reveals lymphoma Tolerated advance to regular (soft bite sized). We will have palliative care consult family meeting scheduled for 09/21 will reengage oncology and likely radiation oncology (2) Sarcoidosis: Continue home steroids and O2 calcium remains in control (3) Dementia: continue home meds (4) Hypokalemia: resolved will monitor. (5) TIA (transient ischemic attack): Continue plavix (6) Depression with anxiety: continue home meds (7) Hypercalcemia: Calcium remains in normal limits (8) Hypomagnesemia: resolved. Fall Will place patient in a low rise pad with padding. Discussed with oral maxilofacial, only has fracture to tip of nasal bones no interventional therapy is planned (9) DVT prophylaxis: SCDs for now Subjective Patient remains pleasantly confused the results of her biopsy just returned in the late afternoon of 09/20 family meeting is scheduled for 09/21 which is being agonized by palliative care service. We are awaiting repeat evaluation by oncology and the pathology is returned Review of Systems Review of Systems: ROS: Thin frail slightly confused No double vision blurry vision No problems with speech or swallowing No palpitations, chest pain or pressure No Wheezing or breathing issues No abdominal pain nausea vomiting diarrhea No burning urine urine frequency or changes in color No focal joint pain or muscle pain No skin rashes or oral lesions No unusual bruising or bleeding No focused back pain or numbness or loss of strength No new changes in memory or confusion Physical Exam Physical Exam: The patient appeared thin and chronically ill Vital signs as documented. Head exam is unremarkable. normocephalic, atraumatic Neck is without jugular venous distension, thyromegaly, or lymphademopathy Lungs are clear to auscultation and percussion. Cardiac exam reveals Rhythm is regular. First and second heart sounds normal. Abdominal exam reveals normal bowel sounds, I cannot palpate the mass and she is not significantly tender in any way Extremities are nonedematous and both pedal pulses are present Neurologic exam is A&Ox3, no focal deficits, strength is equal bilateral Psychologically seems depressed Skin is warm Dry without bruises or lesions Results & Data Vital Signs (Past 12 Hours) Vital Signs Temp Pulse Resp BP Pulse Ox 09/20/18 07:31 36.8 C 81 16 134/79 97 (1) Abdominal pain Abdominal location: unspecified location Qualified Code(s): R10.9 - Unspecified abdominal pain
[2018-09-20 17:00] LABS: Appearance Urine Clear (Clear); Bilirubin Urine Negative (Negative); Blood Urine Negative (Negative); Color Urine Yellow; Glucose Urine UA Negative (Negative); Ketones Urine Negative (Negative); Leukocyte Esterase Urine Negative (Negative); Nitrite Urine Negative (Negative); Protein Urine Negative (Negative); Urobilinogen Urine Negative (Negative)
[2018-09-21] MEDS: SENNA 8.6 MG TAB PO SCH (08:18)
[2018-09-21] MEDS: predniSONE 20 MG TAB PO SCH (08:18)
[2018-09-21] MEDS: CLOPIDOGREL BISULFATE 75 MG TAB PO SCH (08:19)
[2018-09-21] MEDS: DONEPEZIL HCL 5 MG TAB PO SCH (08:19)
[2018-09-21] MEDS: ESCITALOPRAM OXALATE 10 MG TAB PO SCH (08:19)
[2018-09-21] MEDS: LIDOCAINE 5% 1 PATCH TD SCH (08:19)
[2018-09-21] MEDS: ENOXAPARIN INJ 40 MG/0.4 ML SYR SQ SCH (08:21)
[2018-09-21] MEDS: MEMANTINE PO SCH (08:22)
[2018-09-21] MEDS: POTASSIUM CHLORIDE 10 MEQ TABCR PO SCH ×2 (08:22→16:11)
[2018-09-21] MEDS: D5W AND 1/2NSS 1,000 ML IV SCH ×2 (10:19→22:50)
--- NOTE | 2018-09-21 11:45 | Palliative Care Consultation ---
Date of Consultation September 21, 2018 Assessment & Plan (1) Goals of care, counseling/discussion: -78 year old female with PMH mild dementia, pulmonary htn, anxiety, goiter, and high cholesterol, presented to the hospital with abdominal pain, FTT and intolerance of PO intake. Due to these symptoms, patient was referred to GI for EGD. GI saw pt in the office yesterday and ordered a CTAP. Findings include a large LUQ mass that is of unclear etiology but involves the pancreas and spleen. Patient was admitted for further workup. Apparently patient's son states that pt's dementia has worsened in the last few weeks as well. Patient went for biopsy, which does reveal diffuse B-cell lymphoma. Patient is unsure that she would want any treatment for her cancer, her family is involved in decision making as well. Palliative care is consulted to discuss goals of care. -Met at length with patient's niece Shena and son, Hayden. They are aware that patient's biopsy results show diffuse b-cell lymphoma. -Waiting for heme/onc and rad/onc's input for treatement options before making decision. -We talked about code status. Patient currently waxing and waning as far as mental status. Shena and Hayden will continue discussion about code status, but I did express my concern that if patient were to undergo chest compressions, she would suffer horrible injuries and pain with how thin and frail she is. -Discussed discharge planning. patient will likely need SNF. She was living at home with caregivers for the majority of the day, but was along at night. She had a fall and broke her nose here. Not safe to return home. Family is touring SNFs on 09/22. -Also discussed the option of hospice should patient decide to not undergo treatment for the cancer and/or when she is done with treatment if she decides to undergo it. Given patient's frailty and lack of nutrition, she would probably need to undergo rehab and an alternative feeding source prior to receiving any treatment. This will all depend on what family decides. -Palliative care will continue to follow for decision making and supportive car e. -Marinol ordered to see if it helps with appetite. Early satiety also an issue due to the retroperitoneal mass pressing into the stomach, marinol obviously will not improve this. (2) Retroperitoneal mass: (3) Early satiety: (4) Dementia: Supervising Physician Co-Signing Physician Notes Late entry for exam performed on 09/21. Chart reviewed, collaborated with SAYDA Ortiz. Patient seen and examined, patient's son, [id number] and niece at bedside. PE: Patient alert and oriented x4, NAD HEENT: EOMI, hearing within normal limits Respiratory: Unlabored CV: Regular rate Abdomen: Soft, nontender Extremities: No edema Psych: Appropriate mood and affect Agree with above note, assessment and plan as per SAYDA Ortiz-will continue to follow and provide support regarding medical decision making. History of Present Illness Attending Physician: Chico Chavez MD History of Present Illness This 78 year old female with PMH mild dementia, pulmonary htn, anxiety, goiter, and high cholesterol, presented to the hospital with abdominal pain, FTT and intolerance of PO intake. Due to these symptoms, patient was referred to GI for EGD. GI saw pt in the office yesterday and ordered a CTAP. Findings include a large LUQ mass that is of unclear etiology but involves the pancreas and spleen. Patient was admitted for further workup. Apparently patient's son states that pt's dementia has worsened in the last few weeks as well. Patient went for biopsy, which does reveal diffuse B-cell lymphoma. Patient is unsure that she would want any treatment for her cancer, her family is involved in decision making as well. Palliative care is consulted to discuss goals of care. Thank you kindly for this consult. I will follow as needed. Allergies Allergy/AdvReac Type Severity Reaction Status Date / Time donepezil [From Aricept] Allergy Intermediate Gastrointestinal Verified 09/04/18 16:47 Upset naproxen [From Aleve] Allergy Intermediate Gastrointestinal Verified 09/04/18 16:47 Upset rivastigmine [From Exelon] Allergy Intermediate Dizziness Verified 09/04/18 16:47 simvastatin AdvReac Intermediate Gastrointestinal Verified 09/04/18 16:47 Upset shellfish derived AdvReac Unknown Unknown Verified 09/04/18 16:47 Home Medications Home Medications Medication Instructions Recorded Confirmed Type clopidogrel [Plavix] 75 mg PO DAILY 07/27/18 09/04/18 History alendronate 70 mg PO WK 08/15/18 09/04/18 History escitalopram oxalate 10 mg PO DAILY 08/15/18 09/04/18 History memantine 28 mg PO DAILY 08/15/18 09/04/18 History acetaminophen [Tylenol] 650 mg PO Q6H PRN MDD MAX 10 09/04/18 09/04/18 History TABS/24 HOURS. lidocaine [Lidoderm] 1 patch TOPICAL DAILY 09/04/18 09/04/18 History potassium chloride 10 meq PO BIDM 09/04/18 09/04/18 History prednisone 20 mg PO DAILY 09/04/18 09/04/18 History Patient History Medical History Dementia Pulmonary hypertension Acute respiratory failure Hypokalemia Multinodular goiter (nontoxic) Anxiety (Acute) High cholesterol (Acute) Pulmonary nodule (Acute) No pertinent family history Surgical History History of appendectomy (Acute) History of tonsillectomy and adenoidectomy (Acute) History of total abdominal hysterectomy (Acute) Family History Other No pertinent family history Social History Preferred Language: Turkmen Communication Ability: Effective Visual Impairment: No Limitations Hearing Ability: Normal Beliefs That Will Affect Care: Denominational Denominational Beliefs: Oriental Orthodox marital status: / Current Living Situation: Alone Current Living Situation Comment: at [facility] living apartments Feels Safe at Home: Yes Smoking Status: Never smoker Second Hand Exposure: No Hx Alcohol Use: No Hx Substance Use: No Review of Systems Constitutional: + weakness (very mild) Ear, Nose, Mouth, Throat: no dysphagia Respiratory: no cough and no dyspnea Cardiovascular: no chest pain and no edema Gastrointestinal: + abdominal pain ( not at this time) and + early satiety Neurologic: + memory loss (per family); no confusion Psychiatric: no depression and no anxiety Physical Exam Constitutional: + thin and + frail appearing ENMT: external ear and nose normal, oropharynx normal Respiratory: normal respiratory effort, lungs clear to auscultation Cardiovascular: RRR, no murmur, no edema Gastrointestinal (Abdomen): Inspection/Auscultation: normal bowel sounds Percussion/Palpation: abdomen nontender Neurologic: moves all extremities and awake Psychiatric: Orientation: alert and oriented x 3 (periods of forgetfulness) Results & Data Vital Signs (Past 12 Hours) Vital Signs Temp Pulse Resp BP Pulse Ox 09/21/18 07:45 37.1 C 73 16 121/70 99 Time Spent Midlevel Total time spent 70 minutes with greater than 50% of the time spent at bedside discussing goals of care Attending Spent 30 minutes in addition to the above 70 minutes spent by SAYDA Moore for a total of 100 minutes with greater than 50% of the time spent at bedside discussing patient's wishes as well as goals of care.
[2018-09-21] MEDS: ACETAMINOPHEN 325 MG TAB PO PRN (16:11)
--- NOTE | 2018-09-21 16:53 | Hematology/Oncology Prog Note ---
Date of Service September 21, 2018 Assessment & Plan (1) Diffuse large B cell lymphoma: I had a long conversation with Ms. Garcia and her family regarding the diagnosis, management, and prognosis of her lymphoma. DLBCL is an aggressive high-grade non-Hodgkin lymphoma. Untreated, her life expectancy is likely on the order of weeks to a month or two. It is treatable, even in patients her age. Based on her NCCN-IPI score, she has a high-risk score, which predicts a 5-year disease specific survival of around 30% with treatment. However, I have significant concerns about her ability to tolerate treatment. For one, she is quite frail and has been eating poorly for some time now. Prior to her recent series of hospitalizations, she was living independently. However, she had various aides coming to her house regularly and was getting assistance with some of her ADLs. Thus, her PS is borderline for consideration of chemotherapy. Furthermore, her disease burden is considerable, making her high risk for tumor lysis syndrome. She is also at high risk for MANTEL CRAFTSMAN disease, which would be difficult to treat in her case. Finally, her tumor is quite large and is compressing her stomach and GE junction. While it is not clear that the tumor is invading these structures, if it were, there would be a risk of perforation with treatment. There are myriad other complications and issues that she may run into during the course of treatment, even in a scenario where things were going generally well, and her ability to recover from such complications (like a bleeding event or an infection) is questionable. Bearing in mind all of these issues, along with the relatively low likelihood of long-term disease control, I think the overall risk:benefit ratio likely does not favor treating her cancer. I would advocate for hospice care. There may also be a role for an EGD and possible stent placement, to relieve her gastric outlet obstruction. I doubt radiation would be beneficial, given the toxicity associated with treating such a large mass. Her family were not ready to make a decision today. They are visiting some nursing facilities tomorrow and will discuss with them the logistics of her receiving hospice care. I will check back in with her tomorrow. I think it would be optimal to make a final decision about hospice during this stay, as her circumstances are unlikely to improve from here and further delays risk costing her some of the benefits of hospice care. Present on Admission?: Yes Subjective Ms. Garcia was seated comfortably in bed in the company of her family. She denies any fevers, sweats, or enlarging lymph nodes. She continues to feel uncomfortable when she eats even small things, like pills. She denies any pain, bleeding, nausea, or diarrhea. Review of Systems Review of Systems: Her ROS was somewhat limited due to her dementia. See the HPI for pertinent positives and negatives. Physical Exam Constitutional: + thin and + frail appearing; no acute distress Eyes: + anicteric sclerae and EOM intact bilaterally ENMT: external ear and nose normal, oropharynx normal Respiratory: normal respiratory effort, lungs clear to auscultation Cardiovascular: RRR, no murmur, no edema Gastrointestinal (Abdomen): normal bowel sounds, soft, nontender, no hepatosplenomegaly Skin: no rashes, warm and dry Lymphatic: no cervical or axillary lymphadenopathy Results & Data Vital Signs (Past 12 Hours) Vital Signs Temp Pulse Resp BP Pulse Ox 09/21/18 15:37 36.6 C 88 20 117/71 92 09/21/18 07:45 37.1 C 73 16 121/70 99 Laboratory Results Laboratory Results - last 48 hr 09/20/18 09/20/18 09/20/18 06:02 06:02 16:50 WBC 9.95 RBC 3.08 L Hgb 9.2 L Hct 26.6 L MCV 86.4 MCH 29.9 MCHC 34.6 RDW Std Deviation 54.6 H RDW Coeff of Zainab 17.3 H Plt Count 141 MPV 10.6 H Sodium 142 Potassium 3.4 L Chloride 110 H Carbon Dioxide 26 Anion Gap 6.0 BUN 9 Creatinine 0.81 Est Cr Clr Drug Dosing 30.2 Est GFR ( Amer) 80.1 Est GFR (Non-Af Amer) 69.1 BUN/Creatinine Ratio 10.8 Glucose 76 Calcium 8.4 L Urine Color Yellow Urine Appearance Clear Urine pH 6.0 Ur Specific [place] 1.010 Urine Protein Negative Urine Glucose (UA) Negative Urine Ketones Negative Urine Blood Negative Urine Nitrite Negative Urine Bilirubin Negative Urine Urobilinogen Negative Ur Leukocyte Esterase Negative (1) Diffuse large B cell lymphoma Lymphoma site: multiple regions Qualified Code(s): C83.38 - Diffuse large B- cell lymphoma, lymph nodes of multiple sites
--- NOTE | 2018-09-21 19:07 | Hospitalist Progress Note ---
Date of Service September 21, 2018 Assessment & Plan (1) Abdominal pain: CTAP as noted with mets to chest Likely related to mass biopsy shows B-cell lymphoma Heme/onc consult: appreciate input. Consideration of treatment versus comorbid problems associate with treatment. As I personally spoke with Dr. Funes he is leaning away from treatment given the likely heard that if she has a chemotherapy associated complication this may prematurely in her life he, is mostly recommended consideration for hospice therapy Pathology from FNA on reveals lymphoma Tolerated advance to regular (soft bite sized). She is tolerating diet we will add Marinol. She is problems with what looks like gastric outlet obstruction may consider a palliative consideration of gastric stenting We will have palliative care consult family meeting scheduled for 09/21 family is considering placement in detention facility (2) Sarcoidosis: Continue home steroids and O2 calcium remains in control (3) Dementia: continue home meds of donepezil and memantadine (4) Hypokalemia: resolved will monitor. (5) TIA (transient ischemic attack): Continue plavix (6) Depression with anxiety: continue home meds of Lexapro (7) Hypercalcemia: Calcium remains in normal limits (8) Hypomagnesemia: resolved. Fall Will place patient in a low rise pad with padding. Discussed with oral maxilofacial, only has fracture to tip of nasal bones no interventional therapy is planned (9) DVT prophylaxis: SCDs for now Subjective Patient remains pleasantly confused she is no significant abdominal pain however is poor appetite Review of Systems Review of Systems: ROS: Patient is thin and is appears chronically ill No double vision blurry vision No problems with speech or swallowing No palpitations, chest pain or pressure No Wheezing or breathing issues No abdominal pain nausea vomiting diarrhea is a poor appetite and has had recent weight loss No burning urine urine frequency or changes in color No focal joint pain or muscle pain No skin rashes or oral lesions No unusual bruising or bleeding No focused back pain or numbness or loss of strength No new changes in memory or confusion seems of some baseline dementia Physical Exam Physical Exam: The patient appeared thin and frail Vital signs as documented. Head exam is unremarkable. normocephalic, atraumatic Neck is without jugular venous distension, thyromegaly, or lymphademopathy Lungs are clear to auscultation and percussion. Cardiac exam reveals Rhythm is regular. First and second heart sounds normal. Abdominal exam reveals normal bowel sounds, no masses, no organomegaly Extremities are nonedematous and both pedal pulses are present Neurologic exam is A&Ox2, no focal deficits, globally reduced strength Psychologically seems neither anxious or depressed Skin is warm / Dry Results & Data Vital Signs (Past 12 Hours) Vital Signs Temp Pulse Resp BP Pulse Ox 09/21/18 15:37 36.6 C 88 20 117/71 92 09/21/18 07:45 37.1 C 73 16 121/70 99 (1) Abdominal pain Abdominal location: unspecified location Qualified Code(s): R10.9 - Unspecified abdominal pain
[2018-09-21] MEDS: DRONABINOL 2.5 MG CAP PO SCH (21:11)
[2018-09-22] MEDS: DRONABINOL 2.5 MG CAP PO SCH ×2 (08:09→20:22)
[2018-09-22] MEDS: ENOXAPARIN INJ 40 MG/0.4 ML SYR SQ SCH (08:10)
[2018-09-22] MEDS: MEMANTINE PO SCH (08:10)
[2018-09-22] MEDS: LIDOCAINE 5% 1 PATCH TD SCH (08:11)
[2018-09-22] MEDS: CLOPIDOGREL BISULFATE 75 MG TAB PO SCH (08:12)
[2018-09-22] MEDS: predniSONE 20 MG TAB PO SCH (08:12)
[2018-09-22] MEDS: DONEPEZIL HCL 5 MG TAB PO SCH (08:12)
[2018-09-22] MEDS: POTASSIUM CHLORIDE 10 MEQ TABCR PO SCH ×2 (08:12→18:38)
[2018-09-22] MEDS: ESCITALOPRAM OXALATE 10 MG TAB PO SCH (08:12)
[2018-09-22] MEDS: SENNA 8.6 MG TAB PO SCH (08:13)
[2018-09-22] MEDS: D5W AND 1/2NSS 1,000 ML IV SCH ×2 (11:39→23:50)
--- NOTE | 2018-09-22 14:59 | Palliative Care Progress Note ---
Date of Service September 22, 2018 Assessment & Plan (1) Goals of care, counseling/discussion: -Spoke with patient's niece Shena this morning. Also received voicemail from patient's son, Hayden. Hayden is requesting a second opinion on patient's cancer and treatment options-- Dr. Chavez ordered [facility] heme/onc consult. -Patient denies any complaints. Per the patient, she is leaning towards doing no treatment for the cancer. Her family is helping her make decisions. -Family is touring SNFs today. Patient will not be able to go home without 24/ supervision given her new diagnosis and confusion/dementia. -No pain at this time. No symptom management needs. -Will continue to follow and assist with plan and goals of care. (2) Retroperitoneal mass: (3) Early satiety: (4) Dementia: Subjective Patient awake and pleasant, sitting in chair. Oriented for the most part but is forgetful and confused at times. Review of Systems Review of Systems: + weakness (very mild) no dysphagia no cough and no dyspnea no chest pain and no edema + abdominal pain ( not at this time) and + early satiety + memory loss (per family); no confusion no depression and no anxiety Physical Exam Constitutional: + thin and + frail appearing ENMT: external ear and nose normal, oropharynx normal Respiratory: normal respiratory effort, lungs clear to auscultation Cardiovascular: RRR, no murmur, no edema Gastrointestinal (Abdomen): Inspection/Auscultation: normal bowel sounds Percussion/Palpation: abdomen nontender Neurologic: moves all extremities and awake Psychiatric: Orientation: alert and oriented x 3 (periods of forgetfulness) Results & Data Vital Signs (Past 12 Hours) Vital Signs Temp Pulse Resp BP Pulse Ox 09/22/18 07:28 36.5 C 69 16 119/74 100 Time Spent Midlevel 25 minutes with >50% of time spent at bedside with patient discussing plan of care.
--- NOTE | 2018-09-22 17:08 | Oncology Consultation ---
Date of Consultation September 22, 2018 Assessment & Plan (1) Diffuse large B cell lymphoma: 78-year-old female, Hematological diagnosis: - Diffuse large B-cell lymphoma involving the left upper quadrant, large mass measuring about 15 x 10 cm, invading the surrounding structures and blood vessels, early satiety noted, weight loss noted (lost about 10 lb), her weight is around 74 lb at this time, - I reviewed histopathological findings as well as imaging studies to the family members, she has large mass in the left upper quadrant which is causing local compressive effects on the stomach but local invasion of the surrounding structures cannot be ruled out. She has few other comorbid conditions, declining performed status, reviewed with them regarding treatment option in the form of systemic chemotherapy and radiation treatment that can be considered for lymphoma diagnosis but looking at her overall clinical condition, I do not think she will be able to tolerate chemotherapy or radiation treatment (quite large area to radiate and that is likely result in significant toxicities) I reviewed with them regarding chemotherapy treatment schedule, side effect, she is at a high risk for tumor lysis, also at high risk for perforation. I asked patient's family member regarding what was her wish and they suggested that patient did not want chemotherapy treatment. After extensive discussion, we decided to consider for comfore care in her case, already seen by palliative care team, family member has visited [facility] and she is likely to be transferred over there in the near future. Thanks for the consult. Gilmer Reich MD Hem/Onc History of Present Illness Attending Physician: Chico Chavez MD 78-year-old the female, she was admitted at [facility] on 09/14/2018 for poor oral intake, nonspecific left-sided abdominal pain, some nausea, related side, 10 lb weight loss, she was referred to [facility] for upper endoscopic evaluation, they ordered CT scan of the abdomen, found to have large left upper quadrant mass, had biopsy of that mass, final pathology reported to have diffuse large B-cell lymphoma. She was then seen by medical oncologist Dr. Nicole and recently Dr. Funes, because of her locally advanced disease in the left upper quadrant, advanced age, significant weight loss, underlying dementia, not recommended aggressive kind of chemotherapy and suggested comfort care. I have been asked to evaluate her case. I saw her at bedside in the afternoon, her son and other family members where also at bedside, reviewed her chart over the last few days, she was in the bed for the last several days, today she felt somewhat better, sitting outside in the chair, receiving oxen treatment at 2 L per minute, she does not have any increasing abdominal pain, poor oral intake noted, current weight is around 34 kg. No fever, no night sweats. No bleeding from any sites. No significant constipation noted, she is on heparin DVT prophylaxis. Noticed to have some mild ankle edema. No nausea or vomiting at this time. No focal neurological symptoms. She has some underlying dementia, she is on Aricept. She also has underlying sarcoidosis, on daily prednisone treatment at 20 mg per day. REVIEW OF SYSTEMS: she has underlying dementia and show I could not obtain detailed review of system other than mention in the HPI. Allergies Allergy/AdvReac Type Severity Reaction Status Date / Time donepezil [From Aricept] Allergy Intermediate Gastrointestinal Verified 09/04/18 16:47 Upset naproxen [From Aleve] Allergy Intermediate Gastrointestinal Verified 09/04/18 16:47 Upset rivastigmine [From Exelon] Allergy Intermediate Dizziness Verified 09/04/18 16:47 simvastatin AdvReac Intermediate Gastrointestinal Verified 09/04/18 16:47 Upset shellfish derived AdvReac Unknown Unknown Verified 09/04/18 16:47 Home Medications Home Medications Medication Instructions Recorded Confirmed Type clopidogrel [Plavix] 75 mg PO DAILY 07/27/18 09/04/18 History alendronate 70 mg PO WK 08/15/18 09/04/18 History escitalopram oxalate 10 mg PO DAILY 08/15/18 09/04/18 History memantine 28 mg PO DAILY 08/15/18 09/04/18 History acetaminophen [Tylenol] 650 mg PO Q6H PRN MDD MAX 10 09/04/18 09/04/18 History TABS/24 HOURS. lidocaine [Lidoderm] 1 patch TOPICAL DAILY 09/04/18 09/04/18 History potassium chloride 10 meq PO BIDM 09/04/18 09/04/18 History prednisone 20 mg PO DAILY 09/04/18 09/04/18 History Patient History Medical History Dementia Pulmonary hypertension Acute respiratory failure Hypokalemia Multinodular goiter (nontoxic) Anxiety (Acute) High cholesterol (Acute) Pulmonary nodule (Acute) No pertinent family history Surgical History History of appendectomy (Acute) History of tonsillectomy and adenoidectomy (Acute) History of total abdominal hysterectomy (Acute) Family History Other No pertinent family history Social History Preferred Language: Latvian Communication Ability: Effective Visual Impairment: No Limitations Hearing Ability: Normal Beliefs That Will Affect Care: Restoration Restoration Beliefs: Pentecostalism marital status: / Current Living Situation: Alone Current Living Situation Comment: at [facility] living apartments Feels Safe at Home: Yes Smoking Status: Never smoker Second Hand Exposure: No Hx Alcohol Use: No Hx Substance Use: No Physical Exam Physical Exam: On exam: examination done is sitting with him. - Alert but not read oriented thin built woman, not in any distress. She is on nasal cannula supplemental oxygen at 2 L per minute - HEENT: no icterus, no pallor, Throat: Normal. - Neck: No palpable cervical lymphadenopathy. - Chest: emphysematous chest noted. - Abdomen: I could not examine her abdomen quite well in a sitting position. - No focal neuro deficit. - Extremities: no finger clubbing, mild ankle edema noted.. - No lymphadenopathy in the axilla. Results & Data Vital Signs (Past 12 Hours) Vital Signs Temp Pulse Resp BP Pulse Ox 09/22/18 15:38 36.5 C 83 18 93/53 L 98 09/22/18 07:28 36.5 C 69 16 119/74 100 LABS: - WBC 9900, H&H of 9.2/26.6, MCV 86, Platelet count of 141,000 (09/20/2018) - Her calcium level was 13.3 earlier on 09/11/2018, now it has dropped down to around 8.4 mg/dL (09/20/2018). She had hypercalcemia earlier in 07/2018. - Normal liver function test. - Albumin 3.5 - BUN/creatinine: 9/0.8. IMAGING: CT chest (05/25/2018) - Diffuse progressive bilateral parenchymal nodular changes with underlying reticular changes. - Progressive mediastinal and hilar lymphadenopathy - Evidence of pulmonary hypertension noted. CT scan of the abdomen and pelvis (09/14/2018) - Small to moderate bilateral pleural effusions - 14.5 x 9.8 cm heterogenous lobular mass in the left upper quadrant which is involving the medial to the spleen, posterior wall of the stomach, pancreatic tail and left hemidiaphragm. He is also involving the surrounding vascular structures. - Nodular enhancement noted in the bilateral pleural surface. - Multiple spleen lesions noted. CT scan of the head without intravenous contrast (09/16/2018): - No acute intracranial abnormal noted. - Fracture nasal tip bones noted. HISTOPATHOLOGY: Bronchial washing left lower lobe > Scattered macrophage, benign bronchial cells and neutrophil, negative for malignancy. FNA from the retroperitoneal soft tissue mass (09/15/2018) > Diffuse large B- cell lymphoma. FISH analysis for BCL 6, MYC, t(14;18) pending. (1) Diffuse large B cell lymphoma Lymphoma site: multiple regions Qualified Code(s): C83.38 - Diffuse large B- cell lymphoma, lymph nodes of multiple sites
--- NOTE | 2018-09-22 18:03 | Hospitalist Progress Note ---
Date of Service September 22, 2018 Assessment & Plan (1) Abdominal pain: CTAP as noted with mets to chest Likely related to mass, biopsy shows B-cell lymphoma Heme/onc consult: appreciate input. Consideration of treatment versus comorbid problems associate with treatment. As I personally spoke with Dr. Funes he is leaning away from treatment given the likely heard that if she has a chemotherapy associated complication this may prematurely in her life he, is mostly recommended consideration for hospice therapy Pathology from FNA on reveals lymphoma Tolerated advance to regular (soft bite sized). She is tolerating diet tolerated addition of Marinol. despite large mass impinging on stomach, pt is tolerant of eating and supplement Did have palliative care consult, family meeting scheduled for 09/21, initially family wanted second opinion, both oncologist agrees to palliative care, family is considering placement in [facility] facility and transition to palliative care, this decision will impact the medicine reconcillation at transition (2) Sarcoidosis: Continue home steroids and O2 calcium remains in control (3) Dementia: continue home meds of donepezil and memantadine (4) Hypokalemia: resolved will monitor. (5) TIA (transient ischemic attack): Continue plavix (6) Depression with anxiety: symptoms appear, Lexapro (7) Hypercalcemia: Calcium remains in normal limits (8) Hypomagnesemia: resolved. Fall Will place patient in a low rise pad with padding. Discussed with oral maxilofacial, only has fracture to tip of nasal bones no interventional therapy is planned (9) DVT prophylaxis: SCDs for now Subjective Patient is pleasantly confused he seemed to be leaning more towards palliative care family requested a secondary oncology consult which was seen by Dr. Reich today he is in agreement the palliative care may be her best option at this point time due to her declining functional status large size of tumor and possible comorbidities associated with chemotherapy and/or radiation therapy Review of Systems Review of Systems: ROS: well nourished well developed. No double vision blurry vision No problems with speech or swallowing No palpitations, chest pain or pressure No Wheezing or breathing issues No abdominal pain nausea vomiting diarrhea she is tolerating food quite well along with supplementation No burning urine urine frequency or changes in color No focal joint pain or muscle pain No skin rashes or oral lesions No unusual bruising or bleeding No focused back pain or numbness or loss of strength No new changes in memory or confusion Physical Exam Physical Exam: The patient appeared thin and chronically ill Vital signs as documented. Head exam is unremarkable. normocephalic, atraumatic Neck is without jugular venous distension, thyromegaly, or lymphademopathy Lungs are clear to auscultation and percussion. Cardiac exam reveals Rhythm is regular. First and second heart sounds normal. Abdominal exam reveals normal bowel sounds, no masses, no organomegaly Extremities are nonedematous and both pedal pulses are present Neurologic exam is A&Ox2, no focal deficits, strength is equal bilateral Psychologically seems anxious Skin is warm / Dry Results & Data Vital Signs (Past 12 Hours) Vital Signs Temp Pulse Resp BP Pulse Ox 09/22/18 15:38 36.5 C 83 18 93/53 L 98 09/22/18 07:28 36.5 C 69 16 119/74 100 (1) Abdominal pain Abdominal location: unspecified location Qualified Code(s): R10.9 - Uns pecified abdominal pain
[2018-09-23 06:10] LABS: Hematocrit (blood only) 28.3 % (37-47); Hemoglobin 9.4 g/dL (12.0-16.0); Mean Corpuscular Hgb Conc 33.2 g/dL (32-36); Mean Corpuscular Volume 87.6 fL (80-100); Mean Platelet Volume 10.7 fL (7.4-10.4); Platelet Count 164 K/uL (130-400); RDW Coefficient of Variation 17.5 % (11.5-14.5); Red Blood Count 3.23 M/uL (4.2-5.4); White Blood Count 8.13 K/uL (4.8-10.8)
[2018-09-23] MEDS: DRONABINOL 2.5 MG CAP PO SCH ×2 (08:09→20:48)
[2018-09-23] MEDS: LIDOCAINE 5% 1 PATCH TD SCH (08:09)
[2018-09-23] MEDS: MEMANTINE PO SCH (08:10)
[2018-09-23] MEDS: DONEPEZIL HCL 5 MG TAB PO SCH (08:11)
[2018-09-23] MEDS: SENNA 8.6 MG TAB PO SCH (08:11)
[2018-09-23] MEDS: CLOPIDOGREL BISULFATE 75 MG TAB PO SCH (08:11)
[2018-09-23] MEDS: POTASSIUM CHLORIDE 10 MEQ TABCR PO SCH ×2 (08:11→17:26)
[2018-09-23] MEDS: ESCITALOPRAM OXALATE 10 MG TAB PO SCH (08:11)
[2018-09-23] MEDS: predniSONE 20 MG TAB PO SCH (08:11)
[2018-09-23] MEDS: HEPARIN SOD 5,000 UNIT/0.5 ML VIAL SQ SCH ×2 (08:11→20:48)
[2018-09-23] MEDS: ACETAMINOPHEN 325 MG TAB PO PRN (11:52)
[2018-09-23] MEDS ORDERED: MoRPHine SULFATE 2 MG/ML CARP IV STA (12:33)
[2018-09-23] MEDS: D5W AND 1/2NSS 1,000 ML IV SCH (13:08)
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
[2018-09-24] MEDS: D5W AND 1/2NSS 1,000 ML IV SCH ×2 (01:32→14:41)
[2018-09-24] MEDS: MEMANTINE PO SCH (09:05)
[2018-09-24] MEDS: DONEPEZIL HCL 5 MG TAB PO SCH (09:06)
[2018-09-24] MEDS: HEPARIN SOD 5,000 UNIT/0.5 ML VIAL SQ SCH ×2 (09:06→21:28)
[2018-09-24] MEDS: predniSONE 20 MG TAB PO SCH (09:06)
[2018-09-24] MEDS: POTASSIUM CHLORIDE 10 MEQ TABCR PO SCH ×2 (09:06→17:23)
[2018-09-24] MEDS: SENNA 8.6 MG TAB PO SCH (09:06)
[2018-09-24] MEDS: CLOPIDOGREL BISULFATE 75 MG TAB PO SCH (09:06)
[2018-09-24] MEDS: ESCITALOPRAM OXALATE 10 MG TAB PO SCH (09:06)
[2018-09-24] MEDS: DRONABINOL 2.5 MG CAP PO SCH ×2 (09:07→21:28)
[2018-09-24] MEDS ORDERED: MoRPHine SULFATE 2 MG/ML CARP IV PRN (09:21)
[2018-09-24] MEDS: LIDOCAINE 5% 1 PATCH TD SCH (09:37)
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
[2018-09-24] MEDS: MoRPHine SULFATE 2 MG/ML CARP IV PRN ×2 (13:48→17:22)
[2018-09-25] MEDS: D5W AND 1/2NSS 1,000 ML IV SCH ×2 (02:35→18:18)
[2018-09-25] MEDS: LIDOCAINE 5% 1 PATCH TD SCH (08:19)
[2018-09-25] MEDS: DRONABINOL 2.5 MG CAP PO SCH ×2 (08:19→21:05)
[2018-09-25] MEDS: predniSONE 20 MG TAB PO SCH (08:20)
[2018-09-25] MEDS: ESCITALOPRAM OXALATE 10 MG TAB PO SCH (08:20)
[2018-09-25] MEDS: POTASSIUM CHLORIDE 10 MEQ TABCR PO SCH ×2 (08:20→18:16)
[2018-09-25] MEDS: CLOPIDOGREL BISULFATE 75 MG TAB PO SCH (08:20)
[2018-09-25] MEDS: MEMANTINE PO SCH (08:20)
[2018-09-25] MEDS: DONEPEZIL HCL 5 MG TAB PO SCH (08:20)
[2018-09-25] MEDS: SENNA 8.6 MG TAB PO SCH (08:20)
[2018-09-25] MEDS: HEPARIN SOD 5,000 UNIT/0.5 ML VIAL SQ SCH ×2 (08:20→21:03)
[2018-09-25] MEDS: MoRPHine SULFATE 2 MG/ML CARP IV PRN (08:21)
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
[2018-09-25] MEDS ORDERED: MoRPHine SULFATE 5 MG/0.25 ML UDP PO PRN (12:49)
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
[2018-09-26] MEDS: D5W AND 1/2NSS 1,000 ML IV SCH (03:30)
[2018-09-26 05:52] LABS: Hematocrit (blood only) 27.3 % (37-47); Mean Corpuscular Volume 88.6 fL (80-100); Mean Platelet Volume 10.2 fL (7.4-10.4); Platelet Count 172 K/uL (130-400); RDW Coefficient of Variation 17.8 % (11.5-14.5); RDW Standard Deviation 57.6 fL (36.4-46.3); Red Blood Count 3.08 M/uL (4.2-5.4); White Blood Count 9.45 K/uL (4.8-10.8)
[2018-09-26] MEDS: DRONABINOL 2.5 MG CAP PO SCH (09:30)
[2018-09-26] MEDS: MEMANTINE PO SCH (09:30)
[2018-09-26] MEDS: predniSONE 20 MG TAB PO SCH (09:31)
[2018-09-26] MEDS: LIDOCAINE 5% 1 PATCH TD SCH (09:31)
[2018-09-26] MEDS: HEPARIN SOD 5,000 UNIT/0.5 ML VIAL SQ SCH (09:32)
[2018-09-26] MEDS: CLOPIDOGREL BISULFATE 75 MG TAB PO SCH (09:32)
[2018-09-26] MEDS: ESCITALOPRAM OXALATE 10 MG TAB PO SCH (09:32)
[2018-09-26] MEDS: SENNA 8.6 MG TAB PO SCH (09:32)
[2018-09-26] MEDS: POTASSIUM CHLORIDE 10 MEQ TABCR PO SCH (09:32)
[2018-09-26] MEDS: DONEPEZIL HCL 5 MG TAB PO SCH (09:32)
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
== END 2018-09-26 14:10 | disposition hospice, home (50) | DRG 820 ==
LOC: 4E 17:59 → SUATTDRO 17:59